=== PATIENT | male | born 1930 | race Caucasian/White ===

== ENCOUNTER 2017-01-16 00:53 | Inpatient (IN) | payer MEDICARE, BC ==
[2017-01-16] MEDS ORDERED: SODIUM CHLORIDE 0.9% 1,000 ML IV STA (01:10)
--- NOTE | 2017-01-16 01:11 | ED ---
General Adult HPI - General Stated complaint: syncope Time Seen by Provider: 01/16/17 01:06 Source: RN notes reviewed, old records reviewed - History of Present Illness Initial comments: This is an 86-year-old no the ER in severe distress this. We'll have. Patient is diaphoretic and feels weak, states he feels not well. Denies chest pain deny shortness of breath. Patient denies any recent change in medications, doesn't have any recent travel history or sick contacts or cough or congestion. No headache again no chest pain or shortness of breath and no abdominal pain. Patient has syncopal episode tonight. - Related Data Previous Rx's Medication Instructions Recorded Ciprofloxacin HCl [Cipro] 500 mg PO Q12HR #20 tablet 08/25/14 Phenazopyridine [Pyridium] 200 mg PO TID PRN #6 tablet 08/25/14 Allergies Allergy/AdvReac Type Severity Reaction Status Date / Time No Known Allergies Allergy Verified 01/16/17 01:22 Review of Systems ROS Statement: Those systems with pertinent positive or pertinent negative responses have been documented in the HPI. ROS Other: All systems not noted in ROS Statement are negative. Past Medical History Past Medical History: Diabetes Mellitus, Hypertension Additional Past Medical History / Comment(s): Arthritis History of Any Multi-Drug Resistant Organisms: None Reported Past Surgical History: Back Surgery, Orthopedic Surgery Additional Past Surgical History / Comment(s): shoulder operation Past Psychological History: No Psychological Hx Reported Smoking Status: Former smoker Past Alcohol Use History: None Reported Past Drug Use History: None Reported General Exam General appearance: alert, anxious, in distress Head exam: Present: atraumatic, normocephalic, normal inspection Eye exam: Present: normal appearance, PERRL, EOMI. Absent: scleral icterus, conjunctival injection, periorbital swelling ENT exam: Present: normal exam, mucous membranes moist Neck exam: Present: normal inspection. Absent: tenderness, meningismus, lymphadenopathy Respiratory exam: Present: normal lung sounds bilaterally. Absent: respiratory distress, wheezes, rales, rhonchi, stridor Cardiovascular Exam: Present: bradycardia, normal heart sounds. Absent: systolic murmur, diastolic murmur, rubs, gallop, clicks GI/Abdominal exam: Present: soft, normal bowel sounds. Absent: distended, tenderness, guarding, rebound, rigid Extremities exam: Present: normal inspection, full ROM, normal capillary refill. Absent: tenderness, pedal edema, joint swelling, calf tenderness Back exam: Present: normal inspection Neurological exam: Present: alert, oriented X3, CN II-XII intact Psychiatric exam: Present: normal affect, normal mood Skin exam: Present: warm, dry, intact, normal color. Absent: rash Course Vital Signs 01/16/17 01/16/17 01:05 01:30 Temperature 97.5 F L Pulse Rate 26 L 28 L Respiratory 18 16 Rate Blood Pressure 163/75 148/64 O2 Sat by Pulse 94 L Oximetry - Reevaluation(s) Reevaluation #1: 01/16/17 01:38 Patient found to be markedly bradycardic Reevaluation #2: 01/16/17 01:38 Cell with cardiology regarding bradycardia, will come in for permanent pacemaker placement secondary to third-degree block EKG Findings - EKG Comments: EKG Findings:: EKG shows sinus bradycardia rate 26, QRS 144, QTC 403 Medical Decision Making - Medical Decision Making 86 about a year with third-degree heart block and syncopal event. Patient be admitted for internal cardiac patient pacemaker placement Critical Care Time Critical Care Time: Yes Total Critical Care Time: 31 Disposition Clinical Impression: Syncope, Third degree heart block Disposition: ADMITTED IP TO THIS HOSP Condition: Critical Referrals: Finn Alva MD [Primary Care Provider] - 1-2 days
[2017-01-16] MEDS: ATROPINE SULFATE 0.1 MG/ML 10ML SYRINGE IV STA ×2 (01:24→01:29)
[2017-01-16 01:47] LABS: Basophils # (A) 0.1 k/uL (0-0.2); Basophils % (A) 1 %; CH 31.1; CHCM 33.2; Eosinophils # (A) 0.3 k/uL (0-0.7); Eosinophils % (A) 3 %; HCT 45.4 % (39.0-53.0); HDW 2.46; HGB 14.8 gm/dL (13.0-17.5); Luc # (Auto) 0.31; Luc % (Auto) 3; Lymphocytes # (A) 2.3 k/uL (1.0-4.8); Lymphocytes % (A) 21 %; MCH 30.6 pg (25.0-35.0); MCHC 32.6 g/dL (31.0-37.0); Monocytes # (A) 1.2 k/uL (0-1.0); Monocytes % (A) 11 %; Neutrophils # (A) 7.2 k/uL (1.3-7.7); Neutrophils % (A) 63 %; RBC 4.83 m/uL (4.30-5.90); RDW 12.7 % (11.5-15.5); WBC 11.4 k/uL (3.8-10.6); WBC (Perox) 10.49
[2017-01-16 02:00] LABS: ALT 35 U/L (21-72); AST 22 U/L (17-59); Alkaline Phosphatase 105 U/L (38-126); Anion Gap 15 mmol/L; Blood Urea Nitrogen 29 mg/dL (9-20); Calcium 9.9 mg/dL (8.4-10.2); Carbon Dioxide 17 mmol/L (22-30); Chloride 108 mmol/L (98-107); Glucose 263 mg/dL (74-99); Magnesium 1.8 mg/dL (1.6-2.3); Non-African American GFR(MDRD) >60 (>60 ml/min/1.73 sqM); Phosphorous 3.6 mg/dL (2.5-4.5); Potassium 4.7 mmol/L (3.5-5.1); Sodium 140 mmol/L (137-145); Total Bilirubin 0.5 mg/dL (0.2-1.3); Total Protein 7.3 g/dL (6.3-8.2)
[2017-01-16 02:03] LABS: INR 1.1 (<1.1); Prothrombin Time 11.4 sec (9.0-12.0)
[2017-01-16] MEDS ORDERED: LIDOCAINE 2% INJ 20 MG/ML (20 ML MDV) ONE (02:10)
[2017-01-16] MEDS ORDERED: NITROGLYCERIN SL TABS 0.4 MG TAB SUBLINGUAL PRN (02:15)
[2017-01-16 02:25] LABS: Troponin I 0.018 ng/mL (0.000-0.034)
[2017-01-16] MEDS ORDERED: SODIUM CHLORIDE 0.9% 500 ML IV ONE ×3 (02:30→10:30)
[2017-01-16] MEDS ORDERED: SODIUM CHLORIDE 0.9% 1,000 ML IV ONE (02:32)
[2017-01-16] MEDS ORDERED: LIDOCAINE 2% INJ 20 MG/ML SQ ONE ×3 (02:32→11:09)
[2017-01-16] MEDS ORDERED: amLODIPine 5 MG TAB ONE (02:45)
[2017-01-16] MEDS ORDERED: amLODIPine 5 MG TAB PO ONE (02:45)
[2017-01-16 02:49] LABS: Creatine Kinase MB 2.8 ng/mL (0.0-2.4)
--- NOTE | 2017-01-16 02:49 | XR ---
INDICATION: Weakness COMPARISON: None. FINDINGS: Single frontal view of the chest is provided. There is cardiomegaly. Pulmonary vascularity appears normal. Probable bibasilar and dependent subsegmental atelectasis. No significant pleural effusion. No pneumothorax. There is no evidence of acute osseous abnormality. There has been prior ACDF in the lower cervical spine. IMPRESSION: Cardiomegaly and subsegmental atelectasis.
--- NOTE | 2017-01-16 03:23 | P.CON ---
Consult Note - . Consult date: 01/16/17 Assessment/Plan:: This is a 86-year-old gentleman with a known history of hypertension and type 2 diabetes mellitus who he is under the care of Dr. Finn Paul in the outpatient setting. For the last 3-4 months he's been experiencing episodes of dizziness and lightheadedness and near syncope without actual passing out. However today he had at least 2 spells when he almost passed out but he did not hurt himself and he called his son and daughter. Daughter was unavailable and his son uncertain the phone and lives 9 minutes of a and he drove him to the emergency room. Patient walked into the ER with a cane and then had a heart rate of 24 bpm felt dizzy lightheaded had at least [address] VC valle was called and he advised a temporary pacemaker and requested me to come in to perform the procedure. EKG revealed a complete heart block with a narrow QRS and sometimes wide QRS beats. Patient is a poor historian and indicates to me that he has both hypertension and type 2 diabetes and takes medications but unable to tell me which ones. His son also did not have knowledge of what medications he takes but indicated to me that he is in good health remarkably active for his age and has no ALLERGIES. Past medical history: Type 2 diabetes mellitus Benign hypertension Medications: He takes an oral pill for diabetes and 2 pills for hypertension details unavailable ALLERGIES: None On examination his blood pressure was 130/70 pulse rate was 26 bpm. HEENT was unremarkable fundus was not examined by me neck is supple there is JVD of 1 cm. No carotid bruit is audible. Heart exam revealed distant heart sounds and no significant murmurs but heart rate was low area and lungs were clear abdomen is soft nontender lower extremities revealed diminished pulses. Gross examination of central nervous system did not reveal any focal neurological deficits. Rhythm strips suggest complete heart block. Impression: #1 Complete heart block with syncope. #2 benign hypertension #3 hyped 2 diabetes mellitus on oral agents Recommendations: I am recommending a temporary pacemaker from the right femoral approach today and a permanent pacemaker tomorrow rationale risks benefits options were discussed in detail with the patient and his son and I proceeded to perform the procedure expeditiously. Will proceed with a permanent pacemaker tomorrow. I will obtain echocardiogram. There is a mild troponin elevation could be related to bradycardia-related hypoxia and troponin rise get echocardiogram in the morning and tried to get a list of his medications from his pharmacy
--- NOTE | 2017-01-16 03:28 | P.PCN ---
Date of Procedure: 01/16/17 Preoperative Diagnosis: Complete heart block Postoperative Diagnosis: Complete heart block Procedure(s) Performed: Transvenous temporary pacemaker from the right femoral approach Implants: Indications for Procedure: Operative Findings: Description of Procedure: This patient presented to the hospital with a multiple episodes of near syncope had a heart rate of about 26 bpm was in complete heart block hemodynamically stable. I advised a temporary pacemaker today and a permanent pacemaker tomorrow and proceeded to perform the procedure expeditiously. Risks benefits options and rationale were explained to the patient and his son. Under strict aseptic precautions and local anesthesia S a 6-Yakut introducer was placed in the right femoral vein. Under fluoroscopic guidance a 5-Yakut balloon tipped pacemaker was advanced and positioned in the right ventricular apex. Excellent threshold were obtained. The threshold was less than 0.4 mV. The pacemaker was set at a backup rate of 40 and a MA of 3.0mV the pacemaker was secured and the lead was secured. Patient was in a paced rhythm at 40. Patient tolerated the procedure well without complications. The details were discussed with the patient as well as his son. He will go to the ICU will be observed very closely and I will perform a permanent pacemaker tomorrow.
[2017-01-16 03:40] LABS: Glucose,Whole Blood 247 mg/dL (75-99)
[2017-01-16 03:55] VITALS: BMI 38.5
[2017-01-16] MEDS: SODIUM CHLORIDE 0.9% 1,000 ML IV SCH ×2 (04:00→13:31)
[2017-01-16] MEDS: ZOLPIDEM 5 MG TAB PO PRN (05:04)
[2017-01-16] MEDS: amLODIPine 5 MG TAB PO SCH (08:17)
[2017-01-16] MEDS ORDERED: HYDROCORTISONE SUCCINATE 100 MG/2 ML VIAL IV STA (08:33)
[2017-01-16 08:37] LABS: Appearance,Urine Clear (Clear); Bilirubin,Urine Negative (Negative); Glucose,Urine (UA) 3+ (Negative); Ketones,Urine 1+ (Negative); Leukocyte Esterase,Urine Negative (Negative); Nitrite,Urine Negative (Negative); PH, Urine 5.5 (5.0-8.0); Protein,Urine Trace (Negative); Specific Gravity,Urine 1.019 (1.001-1.035); UA Billing (MACRO vs. MICRO) CHEM; Urobilinogen,Urine <2.0 mg/dL (<2.0)
[2017-01-16 09:02] LABS: Creatine Kinase MB 2.5 ng/mL (0.0-2.4); Troponin I 0.092 ng/mL (0.000-0.034)
[2017-01-16] MEDS ORDERED: ceFAZolin 1,000 MG in SODIUM CHLORIDE 0.9% IRRIGATIO 250 ML IRRIGATION ONE (10:00)
[2017-01-16] MEDS ORDERED: IODIXANOL 270 MG/ML 50 ML ML IV ONE (10:20)
[2017-01-16] MEDS ORDERED: MIDAZOLAM 2 MG/2 ML VIAL ONE (10:32)
[2017-01-16] MEDS: ceFAZolin 2 GM in SODIUM CHLORIDE 0.9% 100 ML IVPB ONE ×2 (10:33→10:50)
[2017-01-16] MEDS ORDERED: MIDAZOLAM 2 MG/2 ML VIAL IVP ONE (10:38)
[2017-01-16] MEDS ORDERED: HYDROmorphone 2 MG/ML 1 ML SYRINGE ONE (10:42)
[2017-01-16] MEDS: HYDROmorphone 2 MG/ML 1 ML SYRINGE IVP ONE ×2 (10:43→12:23)
--- NOTE | 2017-01-16 12:53 | ECHOF ---
Referral Reason:bradycardia, Eval LV FX, Complete Heart Block. MEASUREMENTS -------- HEIGHT: 167.6 cm WEIGHT: 104.3 kg BP: 139/57 IVSd: 1.3 cm (0.6 - 1.1) LVIDd: 4.1 cm (3.9 - 5.3) LVPWd: 1.2 cm (0.6 - 1.1) IVSs: 1.9 cm LVIDs: 2.2 cm LVPWs: 1.9 cm Ao Diam: 3.0 cm (2.0 - 3.7) AV Cusp: 1.4 cm (1.5 - 2.6) LA Diam: 4.4 cm (2.7 - 3.8) MV EXCURSION: 7.744 mm (> 18.000) MV EF SLOPE: 38 mm/s (70 - 150) EPSS: 1.4 cm MV E Sherman: 1.09 m/s MV DecT: 274 ms MV A Sherman: 1.07 m/s MV E/A Ratio: 1.02 AV maxP.55 mmHg AV meanP.03 mmHg RAP: 5.00 mmHg RVSP: 9.27 mmHg FINDINGS -------- Paced rhythm. This was a technically difficult study with suboptimal views. There is mild concentric left ventricular hypertrophy. Overall left ventricular systolic function is low-normal with, an EF between 50 - 55 %. The right ventricle is normal in size and function. The left atrium is mildly dilated. The right atrium is normal in size. 1.5mg of Definity was utilized for enhancement of images Aortic valve is trileaflet and is mildly thickened. There is mild aortic stenosis present. Peak/mean gradient across the Aortic Valve is 15.55mmHg / 8.03mmHg. The mitral valve leaflets are mildly thickened. Mild mitral regurgitation is present. Mild tricuspid regurgitation present. The right ventricular systolic pressure, as measured by Doppler, is 9.27mmHg. Pulmonic valve appears structurally normal. The aortic root size is normal. The pericardium is normal. CONCLUSIONS -------- 1. Paced rhythm. 2. There is mild aortic stenosis present. 3. Peak/mean gradient across the Aortic Valve is 15.55mmHg / 8.03mmHg. 4. The mitral valve leaflets are mildly thickened. 5. Mild mitral regurgitation is present. 6. Mild tricuspid regurgitation present. 7. The right ventricular systolic pressure, as measured by Doppler, is 9.27mmHg. 8. Pulmonic valve appears structurally normal. 9. The aortic root size is normal. 10. The pericardium is normal. 11. This was a technically difficult study with suboptimal views. 12. There is mild concentric left ventricular hypertrophy. 13. Overall left ventricular systolic function is low-normal with, an EF between 50 - 55 %. 14. The right ventricle is normal in size and function. 15. The left atrium is mildly dilated. 16. The right atrium is normal in size. 17. 1.5mg of Definity was utilized for enhancement of images 18. Aortic valve is trileaflet and is mildly thickened. CUFF SETTER: Monica Skinner RDCS
[2017-01-16] MEDS ORDERED: ACETAMINOPHEN TAB 325 MG TAB PO PRN (13:33)
--- NOTE | 2017-01-16 14:01 | P.PCN ---
Date of Procedure: 01/16/17 Preoperative Diagnosis: Complete heart block status post temporary pacemaker placement Postoperative Diagnosis: Complete heart block status post dual-chamber permanent pacemaker placement and removal of temporary pacer Procedure(s) Performed: Implants: Anesthesia: other (Moderate conscious sedation was provided with Versed and Dilaudid and patient monitored very closely for 2 hours and oxygenation was good ) Indications for Procedure: Operative Findings: Description of Procedure: #1 permanent dual-chamber pacemaker placement from left pectoral approach, performed by Dr. YOLY Tobar #2 removal of right femoral transvenous pacemaker and the 6-Indian sheath This patient presented last night with a complete heart block and multiple episodes of near syncope. His heart rate was about 26 bpm and I performed a temporary transvenous pacemaker from the right femoral approach. Patient tolerated the procedure well and I kept the backup rate at 40 bpm and his underlying rhythm remained about 26 this morning he was advised permanent pacemaker. All the risks and benefits options were explained carefully to the patient and family. Under strict aseptic precautions and local anesthesia, 2 separate access points were obtained into the left axillary vein after performing a venogram For guidance. Access was obtained under fluoroscopic guidance. obtained the initial access point and I obtained a second access point. A surgical pocket was made using blunt dissection and cautery. There was some oozing around the wires. Cautery was used to secure good hemostasis. Under fluoroscopic guidance a ventricular lead was positioned in the right ventricular apex. After considerable manipulation good thresholds were obtained. R waves are obtained used with the temporary paced R waves. Subsequently this lead was secured with a 0 silk suture. I then advanced a 6- Indian sheath underfluoroscopic guidance and through this sheath advanced a atrial lead and positioned this in the right atrial appendage and good thresholds and P waves were obtained. Lead was also secured to the underlying muscle with a 0 silk suture. Both the leads were then attached to the pulse generator and the pulse generator was secured to the underlying muscle in the line of the incision. The wound was closed in 2 layers. Excellent hemostasis was achieved. I used D-Stat a cause of some oozing. The patient tolerated the procedure well without complications. The findings and the details were discussed with the patient and family members. I expect he will be discharged in the next 24-36 hours. He was sent back to the ICU in a stable condition with excellent hemostasis. The temporary transvenous pacemaker was taken out underfluoroscopic guidance and the venous sheath in the right femoral vein was pulled and hemostasis secured Pacemaker information: Pulse generator audio narrator [employer] scientific model essentio DR IS-1 model L101 serial #[id number] location left pectoral subcutaneous. Right atrial lead audio narrator [employer] scientific model INGEVITY MRI IS-1 bipolar active fixation 52 cm lead bipolar model 7741 serial #[id number] location right atrial appendage Right ventricular lead audio narrator [employer] scientific model INGEVITY MRI IS-1 bipolar active fixation right ventricular lead 59 cm model 7742 serial #[id number] location right ventricular apex Right atrial lead measurements threshold 0.3 V at 0.5 ms, impedance 588 ohms, P waves are 3.0 mV. Right ventricular lead threshold 0.6 V at 0.5 ms impedance 1195 ohms, R waves which were actually paced R waves of 25.0 mV. Pacemaker settings mode DDD, lower rate 50, high-rate 110, paced AV delay 100- 200 ms sensed AV delay 85-170 ms. Patient tolerated the procedure well without complications. He will have a portable chest x-ray today and it two-view chest x-ray tomorrow along with a device check prior to discharge. Discussed with patient and family.
--- NOTE | 2017-01-16 14:38 | XR ---
EXAMINATION TYPE: XR chest 1V portable DATE OF EXAM: 01/16/2017 COMPARISON: NONE INDICATION: Lead placement check TECHNIQUE: Single frontal view of the chest is obtained. FINDINGS: The heart size is normal. The pulmonary vasculature is normal. The lungs are clear. Pacemaker overlies left chest. 2 leads are in typical orientation. No pneumothorax is evident. IMPRESSION: 1. No acute pulmonary process. 2. Pacemaker leads appear to have normal orientation. No pneumothorax is evident post placement
[2017-01-16 16:12] LABS: Creatine Kinase MB 3.3 ng/mL (0.0-2.4); Troponin I 0.686 ng/mL (0.000-0.034)
[2017-01-16] MEDS: ceFAZolin 2 GM in SODIUM CHLORIDE 0.9% 100 ML IVPB SCH ×2 (17:05→21:22)
[2017-01-16 20:52] LABS: Glucose,Whole Blood 181 mg/dL (75-99)
[2017-01-16] MEDS: HEPARIN SODIUM,PORCINE 5,000 UNIT/ML 1 ML VIAL SQ SCH (21:22)
[2017-01-17] MEDS: ZOLPIDEM 5 MG TAB PO PRN ×2 (02:22→22:15)
[2017-01-17] MEDS ORDERED: amLODIPine 5 MG TAB PO STA (02:56)
[2017-01-17] MEDS ORDERED: NITROGLYCERIN SL TABS 0.4 MG TAB SUBLINGUAL STA (02:56)
[2017-01-17] MEDS: ceFAZolin 2 GM in SODIUM CHLORIDE 0.9% 100 ML IVPB SCH ×2 (04:12→09:43)
[2017-01-17 06:22] LABS: Glucose,Whole Blood 191 mg/dL (75-99)
[2017-01-17 07:11] LABS: Basophils % (A) 0 %; CH 30.9; Eosinophils # (A) 0.2 k/uL (0-0.7); Eosinophils % (A) 2 %; HCT 44.7 % (39.0-53.0); HDW 2.51; Luc % (Auto) 2; Lymphocytes % (A) 8 %; MCH 30.5 pg (25.0-35.0); MCHC 33.4 g/dL (31.0-37.0); MCV 91.3 fL (80.0-100.0); Mean Platelet Volume 9.3; Monocytes # (A) 1.1 k/uL (0-1.0); Monocytes % (A) 9 %; Neutrophils % (A) 80 %; RDW 12.8 % (11.5-15.5); WBC 12.5 k/uL (3.8-10.6); WBC (Perox) 11.94
[2017-01-17 07:17] LABS: Cholesterol 146 mg/dL (<200); HDL Cholesterol 55 mg/dL (40-60); Triglycerides 123 mg/dL (<150)
--- NOTE | 2017-01-17 07:53 | XR ---
EXAMINATION TYPE: XR chest 2V DATE OF EXAM: 01/17/2017 COMPARISON: 01/16/2017 INDICATION: Lead placement check TECHNIQUE: Frontal and lateral views of the chest are obtained. FINDINGS: The heart size is normal. The pulmonary vasculature is normal. The lungs are clear. No pneumothorax is evident. Pacemaker overlies left chest. IMPRESSION: 1. No acute pulmonary process.
[2017-01-17] MEDS ORDERED: ASPIRIN 325 MG TAB PO SCH (09:00)
[2017-01-17] MEDS: amLODIPine 5 MG TAB PO SCH (09:43)
[2017-01-17] MEDS: LOSARTAN-HCTZ 50-12.5 MG 1 EACH TAB PO SCH (09:43)
[2017-01-17] MEDS: ATORVASTATIN 40 MG TAB PO SCH (09:43)
[2017-01-17] MEDS: ASPIRIN 81 MG CHEW PO SCH (09:43)
[2017-01-17] MEDS: HEPARIN SODIUM,PORCINE 5,000 UNIT/ML 1 ML VIAL SQ SCH ×2 (09:44→20:39)
[2017-01-17 11:37] LABS: Glucose,Whole Blood 213 mg/dL (75-99)
[2017-01-17] MEDS: INSULIN LISPRO (humaLOG) 300 UNIT/3 ML VIAL SQ SCH ×3 (12:23→20:48)
[2017-01-17 16:52] LABS: Glucose,Whole Blood 274 mg/dL (75-99)
[2017-01-17 20:36] LABS: Hemoglobin A1C 8.1 % (4.2-6.1)
[2017-01-17] MEDS: METOPROLOL TARTRATE 25 MG TAB PO SCH (20:40)
[2017-01-17 21:01] LABS: Glucose,Whole Blood 223 mg/dL (75-99)
[2017-01-18 05:51] LABS: Glucose,Whole Blood 159 mg/dL (75-99)
[2017-01-18] MEDS: INSULIN LISPRO (humaLOG) 300 UNIT/3 ML VIAL SQ SCH ×4 (06:23→21:18)
[2017-01-18] MEDS ORDERED: DOCUSATE 100 MG CAP PO PRN (08:56)
--- NOTE | 2017-01-18 09:01 | P.PN ---
Progress Note - Text This is Dr. Cunningham dictating a progress note on Mr. Nicko Munoz for January 17 and this patient was admitted to the hospital with episodes of near-syncope and lightheadedness. Patient was admitted to the hospital with complete A-V block. Patient had a permanent pacemaker implantation done yesterday by Dr. YOLY Tobar. Patient's chest x-ray showed stable position of the leads and thresholds were intact. The atrial threshold however, could not be measured as patient went into atrial flutter while being examined. The rate is controlled. Patient is going to be started on metoprolol. We'll going to see. Patient will be candidate for new anticoagulant agent. If so patient will be started on Eliquis 5 mg by mouth twice a day starting tomorrow and if stable patient be discharged home tomorrow. Physical examination reveals elderly gentleman who is alert and oriented and doesn't appear to be in acute distress. Vital signs are stable. Lungs are clear. Heart is regular. The pacemaker site. She seemed to be intact without any significant hematoma. Final impression: #1. Complete AV block #2. Status post permanent pacemaker implantation #3. Benign hypertension #4. New-onset atrial flutter. Plan: Add beta marcelo. Will see patient will be candidate for new anticoagulant agent. Possible discharge in 24 hours.
[2017-01-18] MEDS: ASPIRIN 81 MG CHEW PO SCH (09:02)
[2017-01-18] MEDS: amLODIPine 5 MG TAB PO SCH (09:02)
[2017-01-18] MEDS: ATORVASTATIN 40 MG TAB PO SCH (09:03)
[2017-01-18] MEDS: HEPARIN SODIUM,PORCINE 5,000 UNIT/ML 1 ML VIAL SQ SCH ×2 (09:03→21:19)
[2017-01-18] MEDS: LOSARTAN-HCTZ 50-12.5 MG 1 EACH TAB PO SCH (09:03)
[2017-01-18] MEDS: METOPROLOL TARTRATE 25 MG TAB PO SCH ×2 (09:04→21:19)
[2017-01-18 11:46] LABS: Glucose,Whole Blood 165 mg/dL (75-99)
--- NOTE | 2017-01-18 13:26 | P.PN ---
Subjective Principal diagnosis: Syncope This is an 86-year-old gentleman who presented to the hospital with episodes of near syncope and lightheadedness. He was in complete heart block and underwent permanent pacemaker implantation. By the device is being interrogated it was found that the patient had episodes of atrial flutter and for this reason was initiated on anticoagulation. He was seen and examined this morning sitting up in the chair, no complaints. Objective - Vital Signs Vital signs: Vital Signs Temp 97.2 F L 01/18/17 08:00 Pulse 57 L 01/18/17 12:00 Resp 18 01/18/17 12:00 BP 141/68 01/18/17 12:00 Pulse Ox 96 01/18/17 12:00 Intake & Output 01/17/17 01/18/17 01/18/17 18:59 06:59 18:59 Intake Total 120 720 180 Output Total 200 1800 Balance -80 -1080 180 Weight 101.1 kg Intake: Oral 120 720 180 Output: Urine 200 1800 Other: Voiding Method Indwelling Catheter # Voids 1 1 - Exam PHYSICAL EXAMINATION: HEENT: Head is atraumatic, normocephalic. Pupils equal, round. Neck is supple. There is no elevated jugular venous pressure. HEART EXAMINATION: Heart S1, S2 normal. No murmur or gallop heard. CHEST EXAMINATION: Lungs are clear to auscultation and precussion. No chest wall tenderness is noted on palpation or with deep breathing. Site of pacemaker implantation, dressing is dry and intact. ABDOMEN: Soft, nontender. Bowel sounds are heard. No organomegaly noted. EXTREMITIES: 2+ peripheral pulses with no evidence of peripheral edema and no calf tenderness noted. NEUROLOGIC patient is awake, alert and oriented -3. . - Labs CBC & Chem 7: 01/17/17 06:01/16/17 01:24 Labs: Abnormal Lab Results - Last 24 Hours (Table) 01/17/17 01/17/17 01/17/17 Range/Units 06:17 16:48 20:46 POC Glucose (mg/dL) 274 H 223 H (75-99) mg/dL Hemoglobin A1c 8.1 H (4.2-6.1) % 01/18/17 01/18/17 Range/Units 05:49 11:44 POC Glucose (mg/dL) 159 H 165 H (75-99) mg/dL Hemoglobin A1c (4.2-6.1) % Microbiology - Last 24 Hours (Table) 01/16/17 08:00 Urine Culture - Final Urine,Voided Assessment and Plan (1) Pacemaker Status: Acute (2) Atrial flutter Status: Acute (3) Syncope Status: Acute (4) Third degree heart block Status: Acute Plan: From cardiology's perspective, patient may be able to be discharged home today. He'll make him a follow-up appointment in the office and with the device clinic in one week. He has also been initiated on Eliquis 2 mg one tablet by mouth twice a day. Continues to be in normal sinus rhythm today. DNP note has been reviewed, I agree with a documented findings and plan of care. Patient was seen and examined.
[2017-01-18 16:54] LABS: Glucose,Whole Blood 153 mg/dL (75-99)
[2017-01-18] MEDS: metFORMIN 500 MG TAB PO SCH (16:59)
--- NOTE | 2017-01-18 17:30 | P.PN ---
Progress Note - Text Date of service: January/2017 Presenting complaint: Urinary retention X Interval history: Patient admitted with complete AV block and got pacemaker. Patient also been in atrial flutter currently in sinus rhythm. Cardiology is looking into starting the patient eliquis . Earlier today patient had a large urinary retention of about 900 mL and a Ashley catheter was placed. Patient been having progressive urine symptoms over last 3-4 years with decreased urine output and a slow stream. Patient's family at the bedside. Otherwise patient feels well. Patient has not been taking his Glucophage at home, now because her sugars are running on the high side is agreed to start on his Glucophage Review of systems: Was done for constitutional, cardiovascular, GI, pulmonary. Genitourinary, relevant finding as above Current medications are reviewed VITAL SIGNS: [97.2, 68, 16, 124/60, 95% room air] GENERAL APPEARANCE: Well-built. Lying in bed, comfortable EYES: Pupils equal. Conjunctiva normal. NECK: JVD not raised. Mass not palpable. RESPIRATORY: Respiratory effort normal. Lungs clear to auscultation. CARDIOVASCULAR: First and second sounds normal. No edema. ABDOMEN: Soft. Liver and spleen not palpable. No tenderness. No mass palpable. PSYCHIATRY: Alert and oriented x3. Mood and affect normal. Extremities: Left arm in a sling Labs: None from today Assessment: -Complete AV block leading to a permanent pacemaker placement -Paroxysmal atrial flutter currently in sinus rhythm -Essential hypertension -Acute urine retention secondary to a BPH -obesity BMI 36.0 -Diabetes mellitus type 2, uncontrolled, patient not been taking his Glucophage Plan: Ashley catheter was placed. He should be started on Flomax. Will be given a trial of DC Ashley tomorrow and is still retains will be discharged with a Ashley catheter. Also patient started on Glucophage. Eliquis is being looked into by cardiology. Care was discussed with the patient's and family by the bedside. Check labs in the morning.
[2017-01-18 20:52] LABS: Glucose,Whole Blood 168 mg/dL (75-99)
[2017-01-18] MEDS ORDERED: TAMSULOSIN 0.4 MG CAP.ER.24H PO SCH (21:00)
[2017-01-18] MEDS: ZOLPIDEM 5 MG TAB PO PRN (22:40)
[2017-01-19 06:11] LABS: Glucose,Whole Blood 140 mg/dL (75-99)
[2017-01-19] MEDS: INSULIN LISPRO (humaLOG) 300 UNIT/3 ML VIAL SQ SCH ×2 (06:11→12:23)
[2017-01-19] MEDS: metFORMIN 500 MG TAB PO SCH (06:11)
[2017-01-19] MEDS: METOPROLOL TARTRATE 25 MG TAB PO SCH (07:57)
[2017-01-19] MEDS: amLODIPine 5 MG TAB PO SCH (07:58)
[2017-01-19] MEDS: ATORVASTATIN 40 MG TAB PO SCH (07:58)
[2017-01-19] MEDS: ASPIRIN 81 MG CHEW PO SCH (07:58)
[2017-01-19] MEDS: HEPARIN SODIUM,PORCINE 5,000 UNIT/ML 1 ML VIAL SQ SCH (07:59)
[2017-01-19] MEDS ORDERED: LISINOPRIL 5 MG TAB PO SCH (09:00)
[2017-01-19 09:08] VITALS: TEMP 97.8
[2017-01-19 11:26] VITALS: BP 98/54; PULSE 70; RESP 18
[2017-01-19 11:35] LABS: Glucose,Whole Blood 256 mg/dL (75-99)
[2017-01-19] MEDS: LOSARTAN-HCTZ 50-12.5 MG 1 EACH TAB PO SCH (12:21)
[2017-01-19] MEDS ORDERED: APIXABAN 2.5 MG TABLET PO SCH (13:15)
--- NOTE | 2017-01-19 16:56 | P.DS ---
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 Found to be in complete AV block and also episodes of atrial flutter. Patient got a permanent pacemaker. Patient been also having trouble making urine for some time and landed up having acute urinary retention of about 900 mL. Patient is put on Flomax. Ashley catheter had to be placed and today patient did get the trial of DC Ashley but did not make urine hands patient Ashley is being put back in. To follow-up with urology as an outpatient. Care was discussed in detail with the patient and son at the bedside. Left arm in a sling. Discharge planning more than 35 minutes Procedure: Permanent pacemaker placed by Dr. Bobby Plan - Discharge Summary New Discharge Prescriptions: New amLODIPine [Norvasc] 5 mg PO DAILY #60 tab Atorvastatin [Lipitor] 40 mg PO DAILY #60 tab Losartan-Hctz 50-12.5 mg [Hyzaar 50-12.5] 2 each PO DAILY #60 tab Apixaban [Eliquis] 2.5 mg PO BID tab Metoprolol Tartrate [Lopressor] 25 mg PO BID #60 tab Tamsulosin [Flomax] 0.4 mg PO HS #30 cap Continue Aspirin 81 mg PO DAILY Cholecalciferol [Vitamin D3] 2,000 unit PO DAILY metFORMIN HCL [Glucophage] 500 mg PO AC-TID Discontinued Carvedilol [Coreg] 6.25 mg PO BID Simvastatin [Simvastatin] 40 mg PO HS Discharge Medication List Aspirin 81 mg PO DAILY 01/16/17 [History] Cholecalciferol [Vitamin D3] 2,000 unit PO DAILY 01/16/17 [History] Atorvastatin [Lipitor] 40 mg PO DAILY #60 tab 01/17/17 [Rx] Losartan-Hctz 50-12.5 mg [Hyzaar 50-12.5] 2 each PO DAILY #60 tab 01/17/17 [Rx] amLODIPine [Norvasc] 5 mg PO DAILY #60 tab 01/17/17 [Rx] metFORMIN HCL [Glucophage] 500 mg PO AC-TID 01/17/17 [History] Apixaban [Eliquis] 2.5 mg PO BID tab 01/19/17 [Rx] Metoprolol Tartrate [Lopressor] 25 mg PO BID #60 tab 01/19/17 [Rx] Tamsulosin [Flomax] 0.4 mg PO HS #30 cap 01/19/17 [Rx] Follow up Appointment(s)/Referral(s): Dary Tobar MD [STAFF PHYSICIAN] - 01/25/17 3:30 pm Finn Alva MD [Primary Care Provider] - 3 Days (Please make appointment when ofice is open) [facility] Visiting Nurse, [NON-STAFF] - Benedict Lance MD [STAFF PHYSICIAN] - 2 Weeks Patient Instructions/Handouts: Pacemaker (DC), Ashley Catheter Placement and Care (DC), Meal Planning with Diabetes Exchanges (DC) Activity/Diet/Wound Care/Special Instructions: *Danie - warehouse order picker from [facility] at time of discharge*
--- NOTE | 2017-01-19 18:03 | P.PN ---
Subjective Principal diagnosis: Complete heart block This is a 86-year-old gentleman who was admitted with complete heart block. Had temporary followed with permanent pacemaker implantation. Patient also developed atrial flutter. Patient is doing well. He has problems with urination and had a Ashley catheter. Seems to be stable today. Patient is being discharged home. Patient is going on eliquis 2.5 mg by mouth twice daily. Rest of the medication to be continued. Follow-up with YOLY Tobar in one week Objective - Vital Signs Vital signs: Vital Signs Temp 97.8 F 01/19/17 08:00 Pulse 70 01/19/17 11:25 Resp 18 01/19/17 11:25 BP 98/54 01/19/17 11:25 Pulse Ox 94 L 01/19/17 11:25 Intake & Output 01/18/17 01/19/17 01/19/17 18:59 06:59 18:59 Intake Total 480 360 460 Output Total 1125 1900 Balance -645 -1540 460 Weight 98.2 kg Intake: Oral 480 360 460 Output: Urine 1125 1900 Coude 1100 Other: Voiding Method Indwelling Catheter Indwelling Catheter Toilet # Voids 1 - Exam GENERAL EXAM: Patient is alert and oriented and doesn't appear to be in any acute distress HEENT: Normocephalic. Normal reaction of pupils, equal size, normal range of extraocular motion. No erythema or exudates in the throat. NECK: No masses, no nuchal rigidity. CHEST: No chest wall deformity. LUNGS: Equal air entry with no crackles or wheeze. HEART: S1 and S2 normal with no audible mumurs or gallops. Regular rhythm, femorals equal on both sides.. ABDOMEN: No hepatosplenomegaly, normal bowel sounds, no guarding or rigidity. SKIN: No rashes CENTRAL NERVOUS SYSTEM: No focal deficits. EXTREMITIES: No cyanosis, clubbing or edema. - Labs CBC & Chem 7: 01/17/17 06:17 01/16/17 01:24 Labs: Abnormal Lab Results - Last 24 Hours (Table) 01/18/17 01/19/17 01/19/17 Range/Units 20:48 06:09 11:31 POC Glucose (mg/dL) 168 H 140 H 256 H (75-99) mg/dL Assessment and Plan (1) Atrial flutter Status: Acute (2) Pacemaker Status: Acute (3) Syncope Status: Acute (4) Third degree heart block Status: Acute Plan: Patient is critically stable. Being discharged home.
== END 2017-01-19 19:39 | disposition home or self-care (01) | DRG 244 ==
LOC: EC 00:53 → 6ICU 02:11 → 6SEL 20:11
PROVIDERS: ADMIT Hospitalist; ATTEND Hospitalist
PROC: 02H63JZ Insertion of Pacemaker Lead into Right Atrium, Percutaneous Approach (ICD-10-PCS; 2017-01-16)
PROC: 02HK3JZ Insertion of Pacemaker Lead into Right Ventricle, Percutaneous Approach (ICD-10-PCS; 2017-01-16)
PROC: 5A1223Z Performance of Cardiac Pacing, Continuous (ICD-10-PCS; 2017-01-16)
PROC: 0JH606Z Insertion of Pacemaker, Dual Chamber into Chest Subcutaneous Tissue and Fascia, Open Approach (ICD-10-PCS; principal; 2017-01-16 02:19)
DX: I44.2 Atrioventricular block, complete (principal); E11.65 Type 2 diabetes mellitus with hyperglycemia; E66.9 Obesity, unspecified; I10 Essential (primary) hypertension; I48.92 Unspecified atrial flutter; N40.1 Benign prostatic hyperplasia with lower urinary tract symptoms; R33.8 Other retention of urine; M19.90 Unspecified osteoarthritis, unspecified site; E78.5 Hyperlipidemia, unspecified; Z68.36 Body mass index [BMI] 36.0-36.9, adult; Z87.891 Personal history of nicotine dependence
CPT/HCPCS: 33208; 33210; 36415; 71010; 71020; 80053; 80061; 81003; 82550; 82553; 83036; 83735; 84100; 84484; 85025; 85379; 85610; 85730; 87086; 93005; 93306; 96361; 96374; 99291

== ENCOUNTER 2017-03-01 19:07 | Inpatient (IN) | payer MEDICARE, BC ==
[2017-03-01] MEDS ORDERED: ACETAMINOPHEN TAB 500 MG TAB PO STA (20:31)
[2017-03-01] MEDS ORDERED: IBUPROFEN 600 MG TAB PO STA (20:31)
--- NOTE | 2017-03-01 20:34 | ED ---
General Adult HPI - General Chief complaint: Fever Stated complaint: catheter issues Time Seen by Provider: 03/01/17 19:10 Source: patient, RN notes reviewed Mode of arrival: wheelchair Limitations: no limitations - History of Present Illness Initial comments: This is 86-year-old male who presents emergency Department complaining that he has a fever it was taken at home although 102. Patient states he's had the chills as well along with the fever. Patient states he had a Ashley catheter placed a month ago and he wonders if that is the source of fever. Patient denies any chest pain palpitations difficulty breathing shortness of breath. Patient denies any cough. Patient denies any abdominal pain patient denies any nausea vomiting diarrhea. Patient denies any back pain. Patient denies any lesions rashes or areas of erythema consistent with cellulitis. Patient denies any recent injury or trauma. Patient denies any patient denies numbness weakness. Patient denies any lightheadedness or dizziness - Related Data Home Medications Medication Instructions Recorded Confirmed Aspirin 81 mg PO DAILY 01/16/17 03/01/17 Cholecalciferol [Vitamin D3] 2,000 unit PO DAILY 01/16/17 03/01/17 metFORMIN HCL [Glucophage] 500 mg PO AC-TID 01/17/17 03/01/17 Losartan-Hctz 50-12.5 mg [Hyzaar 2 tab PO DAILY 03/01/17 03/01/17 50-12.5] Previous Rx's Medication Instructions Recorded Atorvastatin [Lipitor] 40 mg PO DAILY #60 tab 01/17/17 amLODIPine [Norvasc] 5 mg PO DAILY #60 tab 01/17/17 Apixaban [Eliquis] 2.5 mg PO BID tab 01/19/17 Metoprolol Tartrate [Lopressor] 25 mg PO BID #60 tab 01/19/17 Tamsulosin [Flomax] 0.4 mg PO HS #30 cap 01/19/17 Allergies Allergy/AdvReac Type Severity Reaction Status Date / Time No Known Allergies Allergy Verified 03/01/17 20:09 Review of Systems ROS Statement: Those systems with pertinent positive or pertinent negative responses have been documented in the HPI. ROS Other: All systems not noted in ROS Statement are negative. Past Medical History Past Medical History: Diabetes Mellitus, Hypertension, Syncope Additional Past Medical History / Comment(s): Arthritis History of Any Multi-Drug Resistant Organisms: None Reported Past Surgical History: Back Surgery, Orthopedic Surgery Additional Past Surgical History / Comment(s): shoulder operation, neck surgery Past Anesthesia/Blood Transfusion Reactions: Family Hisory of Malignant Hyperthermia Past Psychological History: No Psychological Hx Reported Smoking Status: Former smoker Past Alcohol Use History: None Reported Past Drug Use History: None Reported - Past Family History Daughter(s) Family Medical History: Rheumatoid Arthritis (RA) Additional Family Medical History / Comment(s): possuble malignant hyperthermia General Exam - General Exam Comments Initial Comments: GENERAL: Patient is well-developed and well-nourished. Patient is nontoxic and well- hydrated and is in mild distress. ENT: Neck is soft and supple. No significant lymphadenopathy is noted. Oropharynx is clear. Moist mucous membranes. Neck has full range of motion without eliciting any pain. EYES: The sclera were anicteric and conjunctiva were pink and moist. Extraocular movements were intact and pupils were equal round and reactive to light. Eyelids were unremarkable. PULMONARY: Unlabored respirations. Good breath sounds bilaterally. No audible rales rhonchi or wheezing was noted. CARDIOVASCULAR: There is a regular rate and rhythm without any murmurs gallops or rubs. ABDOMEN: Soft and nontender with normal bowel sounds. No palpable organomegaly was noted. There is no palpable pulsatile mass. SKIN: Skin is clear with no lesions or rashes and otherwise unremarkable. NEUROLOGIC: Patient is alert and oriented x3. Cranial nerves II through XII are grossly intact. Motor and sensory are also intact. Normal speech, volume and content. Symmetrical smile. MUSCULOSKELETAL: Normal extremities with adequate strength and full range of motion. No lower extremity swelling or edema. No calf tenderness. LYMPHATICS: No significant lymphadenopathy is noted PSYCHIATRIC: Normal psychiatric evaluation. Limitations: no limitations Course Vital Signs 03/01/17 03/01/17 19:08 20:39 Temperature 100.3 F H Pulse Rate 108 H Respiratory 20 20 Rate Blood Pressure 89/51 O2 Sat by Pulse 92 L Oximetry Medical Decision Making - Medical Decision Making EKG shows ventricular paced rhythm at [address] interval 164 QRS is 152 QTC is 444 QTC is 461. - Lab Data Result diagrams: 03/01/17 21:02 03/01/17 21:02 Lab Results 08/14/17 08/14/17 08/14/17 Range/Units 21:02 21:02 21:02 WBC 22.8 H (3.8-10.6) k/uL RBC 3.86 L (4.30-5.90) m/uL Hgb 12.2 L (13.0-17.5) gm/dL Hct 34.8 L (39.0-53.0) % MCV 90.2 (80.0-100.0) fL MCH 31.6 (25.0-35.0) pg MCHC 35.0 (31.0-37.0) g/dL RDW 12.2 (11.5-15.5) % Plt Count 166 (150-450) k/uL Neutrophils % 85 % Lymphocytes % 4 % Monocytes % 8 % Eosinophils % 1 % Basophils % 0 % Neutrophils # 19.5 H (1.3-7.7) k/uL Lymphocytes # 0.8 L (1.0-4.8) k/uL Monocytes # 1.9 H (0-1.0) k/uL Eosinophils # 0.2 (0-0.7) k/uL Basophils # 0.1 (0-0.2) k/uL PT (9.0-12.0) sec INR (<1.2) APTT (22.0-30.0) sec Sodium 132 L (137-145) mmol/L Potassium 4.4 (3.5-5.1) mmol/L Chloride 98 (98-107) mmol/L Carbon Dioxide 21 L (22-30) mmol/L Anion Gap 13 mmol/L BUN 32 H (9-20) mg/dL Creatinine 1.70 H (0.66-1.25) mg/dL Est GFR (MDRD) Af Amer 47 (>60 ml/min/1.73 sqM) Est GFR (MDRD) Non-Af 38 (>60 ml/min/1.73 sqM) Glucose 178 H (74-99) mg/dL Plasma Lactic Acid Ruel 1.7 (0.7-2.0) mmol/L Calcium 9.5 (8.4-10.2) mg/dL Total Bilirubin 1.2 (0.2-1.3) mg/dL AST 15 L (17-59) U/L ALT 27 (21-72) U/L Alkaline Phosphatase 69 (38-126) U/L Total Protein 6.2 L (6.3-8.2) g/dL Albumin 3.6 (3.5-5.0) g/dL Urine Color Urine Appearance (Clear) Urine pH (5.0-8.0) Ur Specific [place] (1.001-1.035) Urine Protein (Negative) Urine Glucose (UA) (Negative) Urine Ketones (Negative) Urine Blood (Negative) Urine Nitrite (Negative) Urine Bilirubin (Negative) Urine Urobilinogen (<2.0) mg/dL Ur Leukocyte Esterase (Negative) Urine RBC (0-5) /hpf Urine WBC (0-5) /hpf Urine Mucus (None) /hpf Urine Yeast (Budding) (None) /hpf 03/01/17 03/01/17 Range/Units 21:02 21:02 WBC (3.8-10.6) k/uL RBC (4.30-5.90) m/uL Hgb (13.0-17.5) gm/dL Hct (39.0-53.0) % MCV (80.0-100.0) fL MCH (25.0-35.0) pg MCHC (31.0-37.0) g/dL RDW (11.5-15.5) % Plt Count (150-450) k/uL Neutrophils % % Lymphocytes % % Monocytes % % Eosinophils % % Basophils % % Neutrophils # (1.3-7.7) k/uL Lymphocytes # (1.0-4.8) k/uL Monocytes # (0-1.0) k/uL Eosinophils # (0-0.7) k/uL Basophils # (0-0.2) k/uL PT 12.9 H (9.0-12.0) sec INR 1.3 H (<1.2) APTT 28.6 (22.0-30.0) sec Sodium (137-145) mmol/L Potassium (3.5-5.1) mmol/L Chloride (98-107) mmol/L Carbon Dioxide (22-30) mmol/L Anion Gap mmol/L BUN (9-20) mg/dL Creatinine (0.66-1.25) mg/dL Est GFR (MDRD) Af Amer (>60 ml/min/1.73 sqM) Est GFR (MDRD) Non-Af (>60 ml/min/1.73 sqM) Glucose (74-99) mg/dL Plasma Lactic Acid Ruel (0.7-2.0) mmol/L Calcium (8.4-10.2) mg/dL Total Bilirubin (0.2-1.3) mg/dL AST (17-59) U/L ALT (21-72) U/L Alkaline Phosphatase (38-126) U/L Total Protein (6.3-8.2) g/dL Albumin (3.5-5.0) g/dL Urine Color Yellow Urine Appearance Cloudy (Clear) Urine pH 5.5 (5.0-8.0) Ur Specific [place] 1.014 (1.001-1.035) Urine Protein Trace H (Negative) Urine Glucose (UA) Negative (Negative) Urine Ketones Negative (Negative) Urine Blood Small H (Negative) Urine Nitrite Negative (Negative) Urine Bilirubin Negative (Negative) Urine Urobilinogen <2.0 (<2.0) mg/dL Ur Leukocyte Esterase Large H (Negative) Urine RBC 17 H (0-5) /hpf Urine WBC >182 H (0-5) /hpf Urine Mucus Rare H (None) /hpf Urine Yeast (Budding) Few H (None) /hpf Disposition Clinical Impression: Urinary tract infection, Sepsis, Leukocytosis Disposition: ADMITTED IP TO THIS HOSP Referrals: Finn Alva MD [Primary Care Provider] - 1-2 days Time of Disposition: 21:51
[2017-03-01] MEDS: SODIUM CHLORIDE 0.9% 500 ML IV SCH ×2 (21:07→21:41)
[2017-03-01 21:18] LABS: Basophils # (A) 0.1 k/uL (0-0.2); Basophils % (A) 0 %; CH 30.5; CHCM 33.9; Eosinophils # (A) 0.2 k/uL (0-0.7); Eosinophils % (A) 1 %; HCT 34.8 % (39.0-53.0); HDW 2.39; HGB 12.2 gm/dL (13.0-17.5); Immature Gran Flag Slight; Luc # (Auto) 0.35; Luc % (Auto) 2; Lymphocytes # (A) 0.8 k/uL (1.0-4.8); Lymphocytes % (A) 4 %; MCH 31.6 pg (25.0-35.0); MCV 90.2 fL (80.0-100.0); Mean Platelet Volume 8.4; Monocytes # (A) 1.9 k/uL (0-1.0); Monocytes % (A) 8 %; Neutrophils # (A) 19.5 k/uL (1.3-7.7); Neutrophils % (A) 85 %; RBC 3.86 m/uL (4.30-5.90); RDW 12.2 % (11.5-15.5); WBC 22.8 k/uL (3.8-10.6); WBC (Perox) 22.86
[2017-03-01 21:26] LABS: INR 1.3 (<1.2); Partial Thromboplastin Time 28.6 sec (22.0-30.0); Prothrombin Time 12.9 sec (9.0-12.0)
[2017-03-01 21:28] LABS: Appearance,Urine Cloudy (Clear); Bilirubin,Urine Negative (Negative); Glucose,Urine (UA) Negative (Negative); Ketones,Urine Negative (Negative); Leukocyte Esterase,Urine Large (Negative); Mucus,Urine Rare /hpf; Nitrite,Urine Negative (Negative); PH, Urine 5.5 (5.0-8.0); Particle Count 15420; Protein,Urine Trace (Negative); RBC,Urine 17 /hpf (0-5); Specific Gravity,Urine 1.014 (1.001-1.035); UA Billing (MACRO vs. MICRO) MICRO; Urobilinogen,Urine <2.0 mg/dL (<2.0); WBC,Urine >182 /hpf (0-5)
[2017-03-01 21:29] LABS: Calcium 9.5 mg/dL (8.4-10.2); Potassium 4.4 mmol/L (3.5-5.1); Total Bilirubin 1.2 mg/dL (0.2-1.3); Total Protein 6.2 g/dL (6.3-8.2)
[2017-03-01] MEDS ORDERED: LEVOFLOXACIN 750MG-D5W PMX 750 MG in DEXTROSE/WATER 1 150ML.BAG IVPB STA (21:36)
[2017-03-01] MEDS ORDERED: SODIUM CHLORIDE 0.9% 1,000 ML IV ONE ×2 (21:52→22:01)
--- NOTE | 2017-03-01 22:05 | XR ---
EXAMINATION TYPE: XR chest 2V DATE OF EXAM: 03/01/2017 COMPARISON: 01/17/2017 HISTORY: Fever TECHNIQUE: Frontal and lateral views of the chest are obtained. FINDINGS: There is some coarsening of interstitial markings. Heart size is normal. There is no gross heart failure. There is left axillary pacemaker with the lead tips in the right ventricle. There is no pleural effusion. IMPRESSION: There are increased interstitial markings compared to old exam that could relate to mil d interstitial pneumonia. No pulmonary consolidation seen.
[2017-03-02 12:25] LABS: Glucose,Whole Blood 153 mg/dL (75-99)
[2017-03-02] MEDS: ATORVASTATIN 40 MG TAB PO SCH (12:46)
[2017-03-02] MEDS: CHOLECALCIFEROL 1,000 UNIT TAB PO SCH (12:46)
[2017-03-02] MEDS: ASPIRIN 81 MG CHEW PO SCH (12:46)
[2017-03-02] MEDS: metFORMIN 500 MG TAB PO SCH ×2 (12:46→17:46)
[2017-03-02] MEDS: METOPROLOL TARTRATE 25 MG TAB PO SCH ×2 (12:46→21:47)
[2017-03-02] MEDS: amLODIPine 5 MG TAB PO SCH (12:46)
[2017-03-02] MEDS: APIXABAN 2.5 MG TABLET PO SCH ×2 (12:47→21:46)
[2017-03-02] MEDS: LOSARTAN-HCTZ 50-12.5 MG 1 EACH TAB PO SCH (12:47)
[2017-03-02] MEDS: INSULIN LISPRO (humaLOG) 300 UNIT/3 ML VIAL SQ SCH ×3 (12:47→21:47)
[2017-03-02 14:08] LABS: Hemoglobin A1C 7.9 % (4.2-6.1)
[2017-03-02 17:09] LABS: Glucose,Whole Blood 115 mg/dL (75-99)
[2017-03-02 20:47] LABS: Glucose,Whole Blood 132 mg/dL (75-99)
--- NOTE | 2017-03-02 21:41 | P.GSCN ---
History of Present Illness Consult date: 03/02/17 Reason for Consult: Urinary retention/febrile UTI History of present illness: The patient developed urinary retention in late 12/2016. He has been unable to void despite several voiding trials and the use of tamsulosin. Cystometrogram on 02/24 appeared to show normal bladder contractility. He remains unable to void and finished a course of Macrobid last week. He developed a fever to 102 with chills yesterday and was admitted from the ER for IV antibiotics. His catheter was changed in the ER. He is comfortable now and no longer is experiencing chills. He was to have seen Dr Lance on 03/04 for another voiding trial. Review of Systems - Constitutional Denies chills, Denies sweats - Respiratory Denies congestion, Denies cough, Denies wheezing - Gastrointestinal Denies abdominal pain, Denies constipation - Genitourinary Reports as per HPI Past Medical History Past Medical History: Atrial Flutter, Diabetes Mellitus, Hypertension, Syncope Additional Past Medical History / Comment(s): IDDM type II, AVB-complete with pacemaker, paroxysmal A flutter, BPH with IDC, numbness/tingling which pt attributes to injury with rotatiller, some bilateral leg pain with ambulation, arthritis in bilateral knees, ankles and shoulders (limited ROM in shoulders d/ t this). History of Any Multi-Drug Resistant Organisms: None Reported Past Surgical History: Back Surgery, Heart Catheterization, Orthopedic Surgery, Pacemaker Additional Past Surgical History / Comment(s): Laminectomy, anterior cervical discectomy/fusion C4-C6, R shoulder rotator cuff repair, dual chamber pacemaker. Past Anesthesia/Blood Transfusion Reactions: Family Hisory of Malignant Hyperthermia Additional Past Anesthesia/Blood Transfusion Reaction / Comm: Daughter possibly has malignant hyperthermia. Type of Cardiac Device: Permanent Pacemaker Device Placement Date:: 01/16/17 Smoking Status: Former smoker - Past Family History Daughter(s) Family Medical History: Rheumatoid Arthritis (RA) Additional Family Medical History / Comment(s): possuble malignant hyperthermia Father Family Medical History: No Reported History Additional Family Medical History / Comment(s): Father was healthy and lived until age 80yrs. Mother Family Medical History: No Reported History Additional Family Medical History / Comment(s): Mother was healthy and at the age of 77yrs. Medications and Allergies Home Medications Medication Instructions Recorded Confirmed Type Aspirin 81 mg PO DAILY 01/16/17 03/01/17 History Cholecalciferol [Vitamin D3] 2,000 unit PO DAILY 01/16/17 03/01/17 History metFORMIN HCL [Glucophage] 500 mg PO AC-TID 01/17/17 03/01/17 History Losartan-Hctz 50-12.5 mg [Hyzaar 2 tab PO DAILY 03/01/17 03/01/17 History 50-12.5] Allergies Allergy/AdvReac Type Severity Reaction Status Date / Time No Known Allergies Allergy Verified 03/01/17 20:09 Surgical - Exam Vital Signs Temp Pulse Resp BP Pulse Ox 100.3 F H 108 H 20 89/51 92 L 03/01/17 19:08 03/01/17 19:08 03/01/17 19:08 03/01/17 19:08 03/01/17 19:08 - General well developed, well nourished, no pain, obese - ENT no hearing loss, no congestion - Respiratory normal respiratory effort - Abdomen Abdomen: soft, non tender, no organomegaly, no masses Hernia: none - Genitourinary testicles non-tender, other (Ashley catheter in place. Some purulent discharge around catheter at meatus.) - Neurologic no disoriented, no memory loss - Psychiatric speech is normal, memory intact Results - Labs 03/01/17 21:02 03/01/17 21:02 Abnormal Lab Results - Last 24 Hours (Table) 03/01/17 03/01/17 03/02/17 Range/Units 21:02 21:02 12:19 Sodium 132 L (137-145) mmol/L Carbon Dioxide 21 L (22-30) mmol/L BUN 32 H (9-20) mg/dL Creatinine 1.70 H (0.66-1.25) mg/dL Glucose 178 H (74-99) mg/dL POC Glucose (mg/dL) 153 H (75-99) mg/dL Hemoglobin A1c 7.9 H (4.2-6.1) % AST 15 L (17-59) U/L Total Protein 6.2 L (6.3-8.2) g/dL 03/02/17 03/02/17 Range/Units 17:03 20:46 Sodium (137-145) mmol/L Carbon Dioxide (22-30) mmol/L BUN (9-20) mg/dL Creatinine (0.66-1.25) mg/dL Glucose (74-99) mg/dL POC Glucose (mg/dL) 115 H 132 H (75-99) mg/dL Hemoglobin A1c (4.2-6.1) % AST (17-59) U/L Total Protein (6.3-8.2) g/dL Microbiology - Last 24 Hours (Table) 03/01/17 21:02 Urine Culture - Preliminary Urine,Voided Diabetes panel 03/01/17 03/01/17 Range/Units 21:02 21:02 Sodium 132 L (137-145) mmol/L Potassium 4.4 (3.5-5.1) mmol/L Chloride 98 (98-107) mmol/L Carbon Dioxide 21 L (22-30) mmol/L BUN 32 H (9-20) mg/dL Creatinine 1.70 H (0.66-1.25) mg/dL Glucose 178 H (74-99) mg/dL Hemoglobin A1c 7.9 H (4.2-6.1) % Calcium 9.5 (8.4-10.2) mg/dL AST 15 L (17-59) U/L ALT 27 (21-72) U/L Alkaline Phosphatase 69 (38-126) U/L Total Protein 6.2 L (6.3-8.2) g/dL Albumin 3.6 (3.5-5.0) g/dL Calcium panel 03/01/17 Range/Units 21:02 Calcium 9.5 (8.4-10.2) mg/dL Albumin 3.6 (3.5-5.0) g/dL Pituitary panel 03/01/17 Range/Units 21:02 Sodium 132 L (137-145) mmol/L Potassium 4.4 (3.5-5.1) mmol/L Chloride 98 (98-107) mmol/L Carbon Dioxide 21 L (22-30) mmol/L BUN 32 H (9-20) mg/dL Creatinine 1.70 H (0.66-1.25) mg/dL Glucose 178 H (74-99) mg/dL Calcium 9.5 (8.4-10.2) mg/dL Adrenal panel 03/01/17 Range/Units 21:02 Sodium 132 L (137-145) mmol/L Potassium 4.4 (3.5-5.1) mmol/L Chloride 98 (98-107) mmol/L Carbon Dioxide 21 L (22-30) mmol/L BUN 32 H (9-20) mg/dL Creatinine 1.70 H (0.66-1.25) mg/dL Glucose 178 H (74-99) mg/dL Calcium 9.5 (8.4-10.2) mg/dL Total Bilirubin 1.2 (0.2-1.3) mg/dL AST 15 L (17-59) U/L ALT 27 (21-72) U/L Alkaline Phosphatase 69 (38-126) U/L Total Protein 6.2 L (6.3-8.2) g/dL Albumin 3.6 (3.5-5.0) g/dL Assessment and Plan (1) Sepsis Narrative/Plan: The patient appears to have sepsis from a catheter associated UTI. He is currently on Levaquin and has responded as he feels better and his temp is down. Dr Lance will re-evaluate him tomorrow. Status: Acute
[2017-03-02] MEDS: TEMAZEPAM 15 MG CAP PO PRN (21:46)
[2017-03-02] MEDS: TAMSULOSIN 0.4 MG CAP.ER.24H PO SCH (21:47)
[2017-03-02] MEDS ORDERED: LEVOFLOXACIN 750MG-D5W PMX 750 MG in DEXTROSE/WATER 1 150ML.BAG IVPB SCH (22:00)
[2017-03-03 07:29] LABS: Glucose,Whole Blood 108 mg/dL (75-99)
[2017-03-03] MEDS: INSULIN LISPRO (humaLOG) 300 UNIT/3 ML VIAL SQ SCH ×4 (08:20→20:48)
[2017-03-03] MEDS: APIXABAN 2.5 MG TABLET PO SCH ×2 (08:21→20:43)
[2017-03-03] MEDS: METOPROLOL TARTRATE 25 MG TAB PO SCH ×2 (08:21→20:43)
[2017-03-03] MEDS: metFORMIN 500 MG TAB PO SCH ×3 (08:21→17:42)
[2017-03-03] MEDS: ATORVASTATIN 40 MG TAB PO SCH (08:21)
[2017-03-03] MEDS: LOSARTAN-HCTZ 50-12.5 MG 1 EACH TAB PO SCH (08:21)
[2017-03-03] MEDS: ASPIRIN 81 MG CHEW PO SCH (08:21)
[2017-03-03] MEDS: amLODIPine 5 MG TAB PO SCH (08:21)
[2017-03-03] MEDS: CHOLECALCIFEROL 1,000 UNIT TAB PO SCH (08:22)
[2017-03-03] MEDS ORDERED: LEVOFLOXACIN 750MG-D5W PMX 750 MG in DEXTROSE/WATER 1 150ML.BAG IVPB SCH (09:00)
[2017-03-03 12:01] LABS: Glucose,Whole Blood 126 mg/dL (75-99)
--- NOTE | 2017-03-03 12:45 | HP ---
DATE OF ADMISSION: 03/02/17 CHIEF COMPLAINT: Fever. HISTORY OF PRESENT ILLNESS: This 86-year-old gentleman with past medical history of atrial flutter, diabetes mellitus, hypertension, being followed by Dr. Finn Alva in the outpatient setting was recently admitted. The patient had urinary Ashley catheter insertion because of urinary retention. The patient had recurrent fevers and chills. The patient came to [facility] with features of UTI and the patient admitted to the hospital for further evaluation and treatment. The patient was noted to have normal bladder contraction in the outpatient setting. The patient seeing urology. The patient was on outpatient antibiotics. Because of fever, the patient came to the hospital. Urology evaluation on 03/04 is pending for possible voiding trial at this time. The patient started on Levaquin. The white count was elevated at 22.8 on admission. There is no history of any headache, loss of consciousness or seizures. Past medical history of atrial fibrillation, diabetes, hypertension, AV block, with pacemaker recently. Medications prior to admission include: 1. Glucophage 500 mg a.c. t.i.d. 2. Norvasc 5 mg daily. 3. Flomax 0.5 mg q6h. 4. Lopressor 25 mg po b.i.d. 5. Hyzaar two tablets po daily. 6. Vitamin D3 2000 daily. 7. Lipitor 40 mg daily. 8. Aspirin 81 mg daily. 9. Eliquis 2.5 mg po b.i.d. ALLERGIES: None. FAMILY HISTORY: History of rheumatoid arthritis and possible hypothermia. SOCIAL HISTORY: History of occasional alcohol. Previous history of smoking. REVIEW OF SYSTEMS: HEENT: No diminished vision. No diminished hearing. Cardiovascular system: As mentioned earlier. Respiratory: As mentioned earlier. GI: As mentioned earlier. : No dysuria. Nervous system: No numbness, weakness. Allergy/Immunology: No asthma or hayfever. Musculoskeletal : As mentioned earlier. Hematology/oncology: No history of anemia. Endocrine: History of diabetes. Constitutional: As mentioned earlier. Dermatology: Negative. Rheumatology: Negative. Psychiatry: As mentioned earlier. PHYSICAL EXAMINATION: The patient is alert, oriented times three. Pulse 90. Blood pressure 146/52. Respiratory rate 18, temperature 96.7. T-max was 100.3. Pulse ox 97% on room air. HEENT: Conjunctivae normal. NECK: No JVD. Cardiovascular: S1, S2 muffled. Respiratory: Breath sounds diminished at the bases. A few scattered rhonchi and crackles. Abdomen is soft, nontender, no mass palpable. Legs: No edema. No swelling. Nervous system: Higher functions as mentioned earlier. Moves all four limbs. No focal deficits. Lymphatics: No lymph nodes palpable in the neck, axilla or groin. Skin: No ulcer, rash or bleeding. LABS: WBC 22.1, hemoglobin 12.2. Creatinine 1.7. ASSESSMENT: 1. Acute urinary tract infection with sepsis, present on admission. Possibly secondary to urinary catheter. 2. Indwelling Ashley catheter because of urinary obstruction. 3. Increased WBC. 4. Increased creatinine with acute renal failure. 5. Atrial flutter. 6. Diabetes mellitus. 7. Hypertension. 8. History of recent pacemaker implant. RECOMMENDATIONS AND DISCUSSION: Continue the current medications, continue symptomatic treatment. Broad spectrum IV antibiotics. Follow cultures. Urology evaluation. Otherwise at this time, we will continue to monitor. Guarded prognosis because of multiple medical problems. Further recommendations to follow. MTDD
[2017-03-03 17:18] LABS: Glucose,Whole Blood 145 mg/dL (75-99)
[2017-03-03 17:31] LABS: Anion Gap 10 mmol/L; Blood Urea Nitrogen 22 mg/dL (9-20); Calcium 8.7 mg/dL (8.4-10.2); Carbon Dioxide 21 mmol/L (22-30); Chloride 103 mmol/L (98-107); Glucose 128 mg/dL (74-99); Non-African American GFR(MDRD) 59 (>60 ml/min/1.73 sqM); Potassium 3.9 mmol/L (3.5-5.1); Sodium 134 mmol/L (137-145)
[2017-03-03 17:41] LABS: Basophils % (A) 0 %; CH 30.4; CHCM 33.6; Eosinophils # (A) 0.3 k/uL (0-0.7); Eosinophils % (A) 2 %; HCT 33.5 % (39.0-53.0); HDW 2.45; HGB 11.4 gm/dL (13.0-17.5); Luc # (Auto) 0.43; Luc % (Auto) 3; Lymphocytes # (A) 0.9 k/uL (1.0-4.8); Lymphocytes % (A) 7 %; MCH 30.9 pg (25.0-35.0); MCHC 33.9 g/dL (31.0-37.0); Mean Platelet Volume 8.2; Monocytes # (A) 0.9 k/uL (0-1.0); Monocytes % (A) 7 %; Neutrophils # (A) 10.9 k/uL (1.3-7.7); Neutrophils % (A) 81 %; RBC 3.68 m/uL (4.30-5.90); RDW 12.3 % (11.5-15.5); WBC 13.6 k/uL (3.8-10.6); WBC (Perox) 13.94
--- NOTE | 2017-03-03 19:26 | PN ---
DATE OF SERVICE: 03/03/2017 This 86-year-old gentleman, admitted with fever and UTI with sepsis, has an indwelling Ashley catheter. Urology is following the patient closely. On exam, alert and oriented x2. Pulse 81, blood pressure 118/88, respiration 16 , temperature 97.1, pulse ox 94% on room air. HEENT: Conjunctivae normal. NECK: No jugular venous distention. CARDIOVASCULAR: S1, S2 muffled. RESPIRATORY: Breath sounds diminished at the bases. A few scattered rhonchi. ABDOMEN: Soft. Non-tender. LEGS: No edema. No swelling. NERVOUS SYSTEM: No focal deficit. LABS: WBC 22.8, hemoglobin 12.2. Today's labs are not available. REVIEW OF SYSTEMS: CARVIOVASCULAR SYSTEM: No angina, palpitations. RESPIRATORY SYSTEM: As mentioned earlier. GI: As mentioned earlier. : No dysuria, retention. Current medications are reviewed and include: 1. Tylenol p.r.n. 2. Eliquis 2.5 b.i.d. 3. Aspirin. 4. Lipitor. 5. Vitamin D3. 6. Humalog. 7. Levaquin daily. 8. Flomax. 9. Restoril. Cultures are showing Gram-negative bacilli. ASSESSMENT: 1. Acute urinary tract infection with sepsis, present on admission, possibly secondary to indwelling Ashley catheter. 2. Indwelling Ashley catheter because of urinary obstruction. 3. Increased white count. 4. Increased creatinine with mild acute renal failure. 5. Atrial flutter history. 6. Diabetes mellitus, type 2. RECOMMENDATIONS AND DISCUSSION: I recommend to continue the current medications , continue with symptomatic treatment. Continue with the antibiotics. Otherwise , I would recommend continuing to follow with Urology. Monitor blood sugars closely. DVT prophylaxis. Await final ID of the organism. Further recommendations to follow. MTDD
[2017-03-03] MEDS: TAMSULOSIN 0.4 MG CAP.ER.24H PO SCH (20:43)
[2017-03-03] MEDS: TEMAZEPAM 15 MG CAP PO PRN (20:43)
[2017-03-03 20:48] LABS: Glucose,Whole Blood 116 mg/dL (75-99)
[2017-03-04] MEDS: MELATONIN 3 MG TABLET PO SCH ×3 (01:09→22:05)
[2017-03-04 07:05] LABS: Glucose,Whole Blood 136 mg/dL (75-99)
[2017-03-04 08:33] LABS: Basophils % (A) 0 %; CH 31.4; CHCM 33.6; Eosinophils # (A) 0.4 k/uL (0-0.7); Eosinophils % (A) 3 %; HCT 34.8 % (39.0-53.0); HGB 11.4 gm/dL (13.0-17.5); Luc # (Auto) 0.27; Luc % (Auto) 2; Lymphocytes % (A) 9 %; MCH 30.8 pg (25.0-35.0); MCHC 32.8 g/dL (31.0-37.0); MCV 93.8 fL (80.0-100.0); Mean Platelet Volume 9.3; Monocytes # (A) 0.8 k/uL (0-1.0); Monocytes % (A) 7 %; Neutrophils % (A) 78 %; RBC 3.71 m/uL (4.30-5.90); RDW 13.3 % (11.5-15.5); WBC 11.5 k/uL (3.8-10.6)
[2017-03-04] MEDS: LOSARTAN-HCTZ 50-12.5 MG 1 EACH TAB PO SCH (08:43)
[2017-03-04] MEDS: INSULIN LISPRO (humaLOG) 300 UNIT/3 ML VIAL SQ SCH ×4 (08:43→20:28)
[2017-03-04] MEDS: METOPROLOL TARTRATE 25 MG TAB PO SCH ×2 (08:43→20:22)
[2017-03-04] MEDS: ATORVASTATIN 40 MG TAB PO SCH (08:44)
[2017-03-04] MEDS: APIXABAN 2.5 MG TABLET PO SCH ×2 (08:44→20:21)
[2017-03-04] MEDS: metFORMIN 500 MG TAB PO SCH ×3 (08:44→16:59)
[2017-03-04] MEDS: CHOLECALCIFEROL 1,000 UNIT TAB PO SCH (08:45)
[2017-03-04] MEDS: ASPIRIN 81 MG CHEW PO SCH (08:45)
[2017-03-04] MEDS: amLODIPine 5 MG TAB PO SCH (08:45)
[2017-03-04 09:12] LABS: Anion Gap 10 mmol/L; Blood Urea Nitrogen 24 mg/dL (9-20); Calcium 8.8 mg/dL (8.4-10.2); Carbon Dioxide 24 mmol/L (22-30); Chloride 103 mmol/L (98-107); Glucose 122 mg/dL (74-99); Non-African American GFR(MDRD) 53 (>60 ml/min/1.73 sqM); Potassium 4.1 mmol/L (3.5-5.1); Sodium 137 mmol/L (137-145)
[2017-03-04 12:30] LABS: Glucose,Whole Blood 137 mg/dL (75-99)
[2017-03-04] MEDS: ACETAMINOPHEN TAB 325 MG TAB PO PRN (12:42)
--- NOTE | 2017-03-04 13:07 | P.PN ---
Progress Note - Text Mr. Munoz is afebrile. He has no complaints. His WBC count today was 11.5. His urine culture has shown greater than 100,000 Pseudomonas species, sensitive to Levaquin. I have suggested that the Ashley catheter be removed tomorrow morning for a repeat voiding trial. He is receiving tamsulosin. I believe he could be discharged home tomorrow on oral Levaquin or ciprofloxacin. If he is able to void and empty his bladder sufficiently, he could be discharged home without the catheter. Conversely, if he is unable to void or if the postvoid residual was consistent with incomplete bladder emptying, he should be discharged home with the Ashley catheter.
[2017-03-04] MEDS: DOCUSATE 100 MG CAP PO SCH ×2 (16:59→20:22)
[2017-03-04] MEDS: SENNOSIDES-DOCUSATE SODIUM 1 EACH TAB PO SCH ×2 (16:59→20:22)
[2017-03-04 17:00] LABS: Glucose,Whole Blood 133 mg/dL (75-99)
[2017-03-04] MEDS: TAMSULOSIN 0.4 MG CAP.ER.24H PO SCH (20:22)
[2017-03-04 20:28] LABS: Glucose,Whole Blood 153 mg/dL (75-99)
[2017-03-04 22:45] VITALS: RESP 16
[2017-03-05] MEDS: METOPROLOL TARTRATE 25 MG TAB PO SCH ×2 (00:18→09:23)
[2017-03-05] MEDS: ACETAMINOPHEN TAB 325 MG TAB PO PRN (01:49)
[2017-03-05 07:58] LABS: Basophils # (A) 0.1 k/uL (0-0.2); Basophils % (A) 1 %; CH 31.4; CHCM 33.4; Eosinophils # (A) 0.5 k/uL (0-0.7); Eosinophils % (A) 6 %; HCT 35.2 % (39.0-53.0); HDW 2.39; HGB 11.3 gm/dL (13.0-17.5); Luc # (Auto) 0.22; Luc % (Auto) 3; Lymphocytes # (A) 1.1 k/uL (1.0-4.8); Lymphocytes % (A) 12 %; MCH 30.5 pg (25.0-35.0); MCHC 32.2 g/dL (31.0-37.0); MCV 94.5 fL (80.0-100.0); Mean Platelet Volume 8.8; Monocytes # (A) 0.7 k/uL (0-1.0); Monocytes % (A) 8 %; Neutrophils # (A) 6.1 k/uL (1.3-7.7); Neutrophils % (A) 71 %; RBC 3.72 m/uL (4.30-5.90); RDW 12.9 % (11.5-15.5); WBC 8.7 k/uL (3.8-10.6); WBC (Perox) 9.09
[2017-03-05 07:58] LABS: Glucose,Whole Blood 113 mg/dL (75-99)
[2017-03-05 08:25] LABS: Anion Gap 8 mmol/L; Blood Urea Nitrogen 23 mg/dL (9-20); Carbon Dioxide 25 mmol/L (22-30); Chloride 104 mmol/L (98-107); Glucose 114 mg/dL (74-99); Non-African American GFR(MDRD) 59 (>60 ml/min/1.73 sqM); Potassium 3.9 mmol/L (3.5-5.1); Sodium 137 mmol/L (137-145)
[2017-03-05] MEDS: INSULIN LISPRO (humaLOG) 300 UNIT/3 ML VIAL SQ SCH ×3 (08:30→17:25)
[2017-03-05] MEDS: metFORMIN 500 MG TAB PO SCH ×3 (08:32→17:27)
[2017-03-05] MEDS ORDERED: LEVOFLOXACIN 750 MG TAB PO SCH (09:00)
[2017-03-05] MEDS: ASPIRIN 81 MG CHEW PO SCH (09:23)
[2017-03-05] MEDS: amLODIPine 5 MG TAB PO SCH (09:23)
[2017-03-05] MEDS: CHOLECALCIFEROL 1,000 UNIT TAB PO SCH (09:23)
[2017-03-05] MEDS: LOSARTAN-HCTZ 50-12.5 MG 1 EACH TAB PO SCH (09:24)
[2017-03-05] MEDS: APIXABAN 2.5 MG TABLET PO SCH (09:24)
[2017-03-05] MEDS: ATORVASTATIN 40 MG TAB PO SCH (09:24)
[2017-03-05] MEDS: SENNOSIDES-DOCUSATE SODIUM 1 EACH TAB PO SCH (09:24)
[2017-03-05] MEDS: DOCUSATE 100 MG CAP PO SCH (09:24)
--- NOTE | 2017-03-05 10:06 | P.PN ---
Subjective Service the . Personal being dictated for Dr. Mueller. Interval history: This is an 86-year-old gentleman admitted with acute UTI with sepsis, secondary to indwelling Ashley catheter. UTI culture reporting pseudomonas aeruginosa. Maintained on Levaquin. Evaluated by urology with recommendations noted. Afebrile, and WBC improving. Denies chest pain, palpitations or increasing shortness of breath. Objective - Vital Signs Vital signs: Vital Signs Temp 97.5 F L 03/04/17 07:00 Pulse 66 03/04/17 07:00 Resp 16 03/04/17 07:00 BP 117/59 03/04/17 07:00 Pulse Ox 96 03/04/17 07:00 Intake & Output 03/03/17 03/04/17 03/04/17 18:59 06:59 18:59 Output Total 500 1700 Balance -500 -1700 Weight 84.5 kg Output: Urine 500 1700 Other: Voiding Method Indwelling Catheter Indwelling Catheter Indwelling Catheter # Voids 1 - Exam PHYSICAL EXAM: VITAL SIGNS: As above GENERAL: [Sitting up in bed, no acute distress] HEENT: [Pupils equal conjunctiva normal. Oral mucosa moist] NECK: [Supple, no JVD] RESPIRATORY EFFORT:[ Normal] LUNGS: [Bilateral bases diminished no wheezes, rhonchi or crackles] CARDIOVASCULAR[ regular S1 and S2, no murmurs rubs or gallops, no edema] GI: [Abdomen soft, nontender, positive bowel sounds.] PSYCH: [Alert and oriented -3, mood and affect normal.] SKIN: [No rashes] NEURO: [No focal deficits] Microbiology 03/01/17 21:02 Blood Blood Culture - Preliminary No Growth after 72 hours 03/01/17 21:02 Urine,Voided Urine Culture - Final Pseudomonas aeruginosa - Labs CBC & Chem 7: 03/05/17 07:20 03/05/17 07:20 Labs: Abnormal Lab Results - Last 24 Hours (Table) 03/03/17 03/03/17 03/03/17 Range/Units 17:05 17:05 17:11 WBC 13.6 H (3.8-10.6) k/uL RBC 3.68 L (4.30-5.90) m/uL Hgb 11.4 L (13.0-17.5) gm/dL Hct 33.5 L (39.0-53.0) % Neutrophils # 10.9 H (1.3-7.7) k/uL Lymphocytes # 0.9 L (1.0-4.8) k/uL Sodium 134 L (137-145) mmol/L Carbon Dioxide 21 L (22-30) mmol/L BUN 22 H (9-20) mg/dL Creatinine (0.66-1.25) mg/dL Glucose 128 H (74-99) mg/dL POC Glucose (mg/dL) 145 H (75-99) mg/dL 03/03/17 03/04/17 03/04/17 Range/Units 20:47 06:58 07:32 WBC 11.5 H (3.8-10.6) k/uL RBC 3.71 L (4.30-5.90) m/uL Hgb 11.4 L (13.0-17.5) gm/dL Hct 34.8 L (39.0-53.0) % Neutrophils # 9.0 H (1.3-7.7) k/uL Lymphocytes # (1.0-4.8) k/uL Sodium (137-145) mmol/L Carbon Dioxide (22-30) mmol/L BUN (9-20) mg/dL Creatinine (0.66-1.25) mg/dL Glucose (74-99) mg/dL POC Glucose (mg/dL) 116 H 136 H (75-99) mg/dL 03/04/17 Range/Units 07:32 WBC (3.8-10.6) k/uL RBC (4.30-5.90) m/uL Hgb (13.0-17.5) gm/dL Hct (39.0-53.0) % Neutrophils # (1.3-7.7) k/uL Lymphocytes # (1.0-4.8) k/uL Sodium (137-145) mmol/L Carbon Dioxide (22-30) mmol/L BUN 24 H (9-20) mg/dL Creatinine 1.28 H (0.66-1.25) mg/dL Glucose 122 H (74-99) mg/dL POC Glucose (mg/dL) (75-99) mg/dL Microbiology - Last 24 Hours (Table) 03/01/17 21:02 Urine Culture - Final Urine,Voided Pseudomonas aeruginosa 03/01/17 21:02 Blood Culture - Preliminary Blood No Growth after 48 hours Assessment and Plan Plan: 1. [ Acute UTI-pseudomonas aeruginosa with sepsis secondary to indwelling Ashley catheter, present on admission]. 2. [ Indwelling Ashley catheter secondary to urinary obstruction]. 3. [ Leukocytosis]. 4. [ Acute renal failure]. 5. [ Diabetes mellitus type 2]. Plan: Continue on current medication regime ,monitoring and symptomatic treatment. Ashley catheter to be discontinued tomorrow as per urology with repeat voiding trials. Discharge planning in progress for tomorrow. The impression and plan of care has been dictated as directed. : I performed a H&P examination of this patient and discussed the same with the dictator. I agree with the dictator's note. Any additional findings/opinions/ etc. will be noted.
[2017-03-05 12:42] LABS: Glucose,Whole Blood 128 mg/dL (75-99)
[2017-03-05 16:18] VITALS: BP 118/71; PULSE 74; TEMP 97.1
[2017-03-05 17:25] LABS: Glucose,Whole Blood 104 mg/dL (75-99)
--- NOTE | 2017-03-05 17:30 | P.PN ---
Progress Note - Text Mr. Munoz's condition is stable. He has no complaints. He is afebrile. His WBC count and creatinine level are normal. He was unable to void today, and the Ashley catheter was therefore replaced. In view of his persistent urinary retention, he will be discharged home with the Ashley catheter. Levaquin has been prescribed. Given that he takes Eliquis, I feel he is better suited for a laser prostatectomy than a TURP. Outpatient arrangements will be made for this.
== END 2017-03-05 18:30 | disposition home health service (06) | DRG 698 ==
LOC: EC 19:07 → 4MS4W 21:51
PROVIDERS: ADMIT Hospitalist; ATTEND Hospitalist
DX: T83.511A Infection and inflammatory reaction due to indwelling urethral catheter, initial encounter (principal); A41.9 Sepsis, unspecified organism; N17.9 Acute kidney failure, unspecified; I48.92 Unspecified atrial flutter; N13.8 Other obstructive and reflux uropathy; E11.9 Type 2 diabetes mellitus without complications; B96.5 Pseudomonas (aeruginosa) (mallei) (pseudomallei) as the cause of diseases classified elsewhere; I10 Essential (primary) hypertension; I48.91 Unspecified atrial fibrillation; N39.0 Urinary tract infection, site not specified; N40.1 Benign prostatic hyperplasia with lower urinary tract symptoms; M15.9 Polyosteoarthritis, unspecified; Z79.01 Long term (current) use of anticoagulants; Z79.82 Long term (current) use of aspirin; Z79.84 Long term (current) use of oral hypoglycemic drugs; Z79.899 Other long term (current) drug therapy; Z87.891 Personal history of nicotine dependence; Z98.1 Arthrodesis status; Z95.0 Presence of cardiac pacemaker
CPT/HCPCS: 36415; 71020; 80048; 80053; 81001; 83036; 83605; 85025; 85610; 85730; 87040; 87077; 87086; 87186; 93005; 96361; 96365; 96366; 99285

== ENCOUNTER 2017-04-07 18:26 | Emergency (ER) | payer MEDICARE, BC ==
[2017-04-07 18:50] VITALS: TEMP 97.1
[2017-04-07 20:07] VITALS: BP 118/57; PULSE 60; RESP 17
--- NOTE | 2017-04-07 20:10 | ED ---
General Adult HPI - General Chief complaint: Urogenital Stated complaint: Catheter Fell out Time Seen by Provider: 04/07/17 18:50 Source: patient, RN notes reviewed Mode of arrival: ambulatory Limitations: no limitations - History of Present Illness Initial comments: This is an 86-year-old male who presents emergency department after having had a procedure this morning on his prostate. Patient states he put a catheter in however on the way home the catheter slipped out it appeared that the balloon is broken. Patient states he was getting some suprapubic discomfort was unable to urinate so he came to the emergency department. We placed a catheter and the patient and patient felt back to baseline and had no discomfort whatsoever. Patient has no other complaints. - Related Data Home Medications Medication Instructions Recorded Confirmed Aspirin 81 mg PO DAILY 01/16/17 03/01/17 Cholecalciferol [Vitamin D3] 2,000 unit PO DAILY 01/16/17 03/01/17 metFORMIN HCL [Glucophage] 500 mg PO AC-TID 01/17/17 03/01/17 Losartan-Hctz 50-12.5 mg [Hyzaar 2 tab PO DAILY 03/01/17 03/01/17 50-12.5] Previous Rx's Medication Instructions Recorded Atorvastatin [Lipitor] 40 mg PO DAILY #60 tab 01/17/17 amLODIPine [Norvasc] 5 mg PO DAILY #60 tab 01/17/17 Apixaban [Eliquis] 2.5 mg PO BID tab 01/19/17 Metoprolol Tartrate [Lopressor] 25 mg PO BID #60 tab 01/19/17 Tamsulosin [Flomax] 0.4 mg PO HS #30 cap 01/19/17 Docusate [Colace] 100 mg PO BID #30 cap 03/05/17 Levofloxacin [Levaquin] 750 mg PO Q48H #7 tab 03/05/17 Allergies Allergy/AdvReac Type Severity Reaction Status Date / Time No Known Allergies Allergy Verified 04/07/17 18:50 Review of Systems ROS Statement: Those systems with pertinent positive or pertinent negative responses have been documented in the HPI. ROS Other: All systems not noted in ROS Statement are negative. Past Medical History Past Medical History: Atrial Flutter, Diabetes Mellitus, Hypertension, Syncope Additional Past Medical History / Comment(s): IDDM type II, AVB-complete with pacemaker, paroxysmal A flutter, BPH with IDC, numbness/tingling which pt attributes to injury with rotatiller, some bilateral leg pain with ambulation, arthritis in bilateral knees, ankles and shoulders (limited ROM in shoulders d/ t this). History of Any Multi-Drug Resistant Organisms: None Reported Past Surgical History: Back Surgery, Heart Catheterization, Orthopedic Surgery, Pacemaker Additional Past Surgical History / Comment(s): Laminectomy, anterior cervical discectomy/fusion C4-C6, R shoulder rotator cuff repair, dual chamber pacemaker. Laser vaporization of the prostate 04-07-17 Past Anesthesia/Blood Transfusion Reactions: Family Hisory of Malignant Hyperthermia Additional Past Anesthesia/Blood Transfusion Reaction / Comment(s): Daughter possibly has malignant hyperthermia. Type of Cardiac Device: Permanent Pacemaker Device Placement Date:: 01/16/17 Past Psychological History: No Psychological Hx Reported Smoking Status: Former smoker Past Alcohol Use History: None Reported Past Drug Use History: None Reported - Past Family History Daughter(s) Family Medical History: Rheumatoid Arthritis (RA) Additional Family Medical History / Comment(s): possuble malignant hyperthermia Father Family Medical History: No Reported History Additional Family Medical History / Comment(s): Father was healthy and lived until age 80yrs. Mother Family Medical History: No Reported History Additional Family Medical History / Comment(s): Mother was healthy and at the age of 77yrs. General Exam - General Exam Comments Initial Comments: GENERAL Patient is well-developed and well-nourished. Patient is in mild distress. EYES Patient's pupils are equal and round. Extraocular motion is intact SKIN Unremarkable ABDOMINAL Patient initially had some mild suprapubic tenderness after the catheter he had no tenderness. NEURO The patient is alert and oriented 3 PYSCH Patient has normal interpersonal interactions. Limitations: no limitations Course Vital Signs 04/07/17 04/07/17 18:47 20:06 Temperature 97.1 F L Pulse Rate 66 60 Respiratory 18 17 Rate Blood Pressure 85/50 118/57 O2 Sat by Pulse 98 98 Oximetry Disposition Clinical Impression: Urinary retention Disposition: HOME SELF-CARE Condition: Good Instructions: Urinary Retention in Men (ED) Referrals: Finn Alva MD [Primary Care Provider] - 1-2 days Time of Disposition: 20:10
== END 2017-04-07 20:39 | disposition home or self-care (01) ==
LOC: EC 18:26
DX: R33.9 Retention of urine, unspecified (principal); I10 Essential (primary) hypertension; E11.9 Type 2 diabetes mellitus without complications; M17.0 Bilateral primary osteoarthritis of knee; M19.011 Primary osteoarthritis, right shoulder; M19.012 Primary osteoarthritis, left shoulder; M19.071 Primary osteoarthritis, right ankle and foot; Z87.891 Personal history of nicotine dependence; Z79.82 Long term (current) use of aspirin; Z79.84 Long term (current) use of oral hypoglycemic drugs; Z79.899 Other long term (current) drug therapy
CPT/HCPCS: 51702; 99283

== ENCOUNTER → 2017-04-09 | Outpatient (CLI) | payer MEDICARE, BC ==
[2017-04-09 09:42] LABS: Basophils % (A) 0 %; CH 30.6; CHCM 32.2; Eosinophils # (A) 0.2 k/uL (0-0.7); Eosinophils % (A) 3 %; HCT 33.9 % (39.0-53.0); HDW 2.38; HGB 11.1 gm/dL (13.0-17.5); Luc # (Auto) 0.18; Luc % (Auto) 2; Lymphocytes # (A) 1.1 k/uL (1.0-4.8); Lymphocytes % (A) 14 %; MCH 31.2 pg (25.0-35.0); MCHC 32.7 g/dL (31.0-37.0); MCV 95.4 fL (80.0-100.0); Monocytes # (A) 0.7 k/uL (0-1.0); Monocytes % (A) 8 %; Neutrophils # (A) 6.2 k/uL (1.3-7.7); Neutrophils % (A) 73 %; RBC 3.55 m/uL (4.30-5.90); RDW 12.8 % (11.5-15.5); WBC 8.4 k/uL (3.8-10.6); WBC (Perox) 8.71
[2017-04-09 10:08] LABS: Carbon Dioxide 22 mmol/L (22-30); Chloride 104 mmol/L (98-107); Glucose 125 mg/dL (74-99); Potassium 4.5 mmol/L (3.5-5.1); Sodium 137 mmol/L (137-145)
[2017-04-09 10:09] LABS: ALT 25 U/L (21-72); AST 18 U/L (17-59); Alkaline Phosphatase 64 U/L (38-126); Anion Gap 11 mmol/L; Blood Urea Nitrogen 21 mg/dL (9-20); Calcium 9.6 mg/dL (8.4-10.2); Cholesterol 123 mg/dL (<200); HDL Cholesterol 54 mg/dL (40-60); Non-African American GFR(MDRD) >60 (>60 ml/min/1.73 sqM); Total Bilirubin 0.9 mg/dL (0.2-1.3); Total Protein 6.8 g/dL (6.3-8.2)
[2017-04-09 13:07] LABS: Hemoglobin A1C 6.9 % (4.2-6.1)
== END | disposition home or self-care (01) ==
LOC: LABWHC1 08:54
PROVIDERS: ATTEND Internal Medicine
DX: E78.5 Hyperlipidemia, unspecified (principal); I10 Essential (primary) hypertension; E11.49 Type 2 diabetes mellitus with other diabetic neurological complication
CPT/HCPCS: 36415; 80053; 80061; 83036; 85025

== ENCOUNTER → 2017-04-26 | Outpatient (CLI) | payer MEDICARE, BC ==
[2017-04-26 12:39] LABS: Anion Gap 14 mmol/L; Blood Urea Nitrogen 30 mg/dL (9-20); Calcium 9.9 mg/dL (8.4-10.2); Carbon Dioxide 25 mmol/L (22-30); Chloride 99 mmol/L (98-107); Glucose 151 mg/dL (74-99); Non-African American GFR(MDRD) >60 (>60 ml/min/1.73 sqM); Potassium 4.6 mmol/L (3.5-5.1); Sodium 138 mmol/L (137-145)
== END | disposition home or self-care (01) ==
LOC: LABWHC1 11:42
PROVIDERS: ATTEND Internal Medicine Interventional Cardiology
DX: I49.5 Sick sinus syndrome (principal); I10 Essential (primary) hypertension
CPT/HCPCS: 36415; 80048

== ENCOUNTER 2020-04-16 16:04 | Emergency (ER) | payer MEDICARE ==
[2020-04-16 16:15] VITALS: PULSE 65
[2020-04-16 17:30] LABS: Basophils # (A) 0.1 k/uL (0-0.2); Basophils % (A) 1 %; Eosinophils # (A) 0.2 k/uL (0-0.7); Eosinophils % (A) 3 %; HCT 34.4 % (39.0-53.0); HGB 11.1 gm/dL (13.0-17.5); Lymphocytes # (A) 1.4 k/uL (1.0-4.8); Lymphocytes % (A) 16 %; MCHC 32.4 g/dL (31.0-37.0); MCV 92.7 fL (80.0-100.0); Mean Platelet Volume 7.7; Monocytes # (A) 0.9 k/uL (0-1.0); Monocytes % (A) 10 %; Neutrophils # (A) 5.8 k/uL (1.3-7.7); Neutrophils % (A) 68 %; Platelet Count 240 k/uL (150-450); RBC 3.71 m/uL (4.30-5.90); RDW 12.7 % (11.5-15.5); WBC 8.5 k/uL (3.8-10.6)
--- NOTE | 2020-04-16 17:34 | US ---
EXAMINATION TYPE: US venous doppler duplex LE LT DATE OF EXAM: 04/16/2020 5:10 PM COMPARISON: NONE CLINICAL HISTORY: bruising . Swelling in left calf and discolored SIDE PERFORMED: Left TECHNIQUE: The lower extremity deep venous system is examined utilizing real time linear array sonog bhavin with graded compression, doppler sonography and color-flow sonography. VESSELS IMAGED: External Iliac Vein (EIV) Common Femoral Vein Deep Femoral Vein Greater Saphenous Vein * Femoral Vein Popliteal Vein Small Saphenous Vein * Proximal Calf Veins (* superficial vessels) Left Leg: Veins within the upper leg appear negative for DVT, however I was unable to obtain good im ages of popiteal veins due to large complex cystic lesion noted anterior to popiteal vessels and flui d collection travels down to mid calf. IMPRESSION: No evidence of deep vein thrombosis in the left leg. There is a complex mass in the popli teal fossa that is consistent with complex popliteal cyst.
[2020-04-16 17:38] LABS: Partial Thromboplastin Time 25.1 sec (22.0-30.0); Prothrombin Time 10.6 sec (9.0-12.0)
[2020-04-16 17:45] LABS: Calcium 9.5 mg/dL (8.4-10.2); Potassium 4.9 mmol/L (3.5-5.1); Total Bilirubin 0.7 mg/dL (0.2-1.3); Total Protein 7.1 g/dL (6.3-8.2)
--- NOTE | 2020-04-16 18:14 | ED ---
Extremity Problem HPI - General Chief complaint: Extremity Problem,Nontraumatic Stated complaint: left leg swelling Time Seen by Provider: 04/16/20 16:15 Source: patient Mode of arrival: wheelchair Limitations: no limitations - History of Present Illness Initial comments: 89-year-old male with past medical history of A. fib, diabetes on Eliquis who presents to the emergency department with reported left lower extremity swelling. Granddaughter is at bedside and helps with the history. States that the swelling is been present for the past 12 days. It extends from the mid femur down to the foot. The patient has pain when ambulating. Swelling is been consistent. The patient also began having ecchymosis over the dorsal aspect of his distal femur and around his ankle. He is on Eliquis however is concern for DVT. Denies missing any of his doses. He did see his primary care doctor where laboratory studies were completed. Does have a mild history of diastolic heart failure. Denies pedal edema at baseline. Denies any chest pain or shortness of breath. No history of DVT or PE. No known trauma to the area. Denies any numbness or tingling the extremity. No weakness. No other alleviating, precipitating or modifying factors - Related Data Home Medications Medication Instructions Recorded Confirmed Cholecalciferol [Vitamin D3 (25 2,000 unit PO DAILY@0800 01/16/17 04/16/20 Mcg = 1000 Iu)] metFORMIN HCL [Glucophage] 500 mg PO TID@0800,1199,199901/17/17 04/16/20 Apixaban [Eliquis] 2.5 mg PO BID@08,199904/07/17 04/16/20 Atorvastatin [Lipitor] 20 mg PO MOWEFR 04/16/20 04/16/20 Furosemide [Lasix] 30 mg PO DAILY@79904/16/20 04/16/20 Metoprolol Tartrate [Lopressor] 25 mg PO BID@08,199904/16/20 04/16/20 Spironolactone 12.5 mg PO DAILY@79904/16/20 04/16/20 Tamsulosin [Flomax] 0.4 mg PO HS@199904/16/20 04/16/20 Turmeric Root Extract [Turmeric] 500 mg PO BID@0800,199904/16/20 04/16/20 Allergies Allergy/AdvReac Type Severity Reaction Status Date / Time No Known Allergies Allergy Verified 04/16/20 17:41 Review of Systems ROS Statement: Those systems with pertinent positive or pertinent negative responses have been documented in the HPI. ROS Other: All systems not noted in ROS Statement are negative. Past Medical History Past Medical History: Atrial Flutter, Diabetes Mellitus, Hypertension, Syncope Additional Past Medical History / Comment(s): IDDM type II, AVB-complete with pacemaker, paroxysmal A flutter, BPH with IDC, numbness/tingling which pt attributes to injury with rotatiller, some bilateral leg pain with ambulation, arthritis in bilateral knees, ankles and shoulders (limited ROM in shoulders d/t this). History of Any Multi-Drug Resistant Organisms: None Reported Past Surgical History: Back Surgery, Heart Catheterization, Orthopedic Surgery, Pacemaker Additional Past Surgical History / Comment(s): Laminectomy, anterior cervical discectomy/fusion C4-C6, R shoulder rotator cuff repair, dual chamber pacemaker. Laser vaporization of the prostate 04-07-17 Past Anesthesia/Blood Transfusion Reactions: Family Hisory of Malignant Hyperthermia Additional Past Anesthesia/Blood Transfusion Reaction / Comment(s): Daughter possibly has malignant hyperthermia. Type of Cardiac Device: Permanent Pacemaker Device Placement Date:: 01/16/17 Past Psychological History: No Psychological Hx Reported Smoking Status: Never smoker Past Alcohol Use History: None Reported Past Drug Use History: None Reported - Past Family History Daughter(s) Family Medical History: Rheumatoid Arthritis (RA) Additional Family Medical History / Comment(s): possuble malignant hyperthermia Father Family Medical History: No Reported History Additional Family Medical History / Comment(s): Father was healthy and lived until age 80yrs. Mother Family Medical History: No Reported History Additional Family Medical History / Comment(s): Mother was healthy and at the age of 77yrs. General Exam Limitations: no limitations General appearance: alert Respiratory exam: Present: normal lung sounds bilaterally. Absent: respiratory distress, wheezes, rales, rhonchi, stridor Cardiovascular Exam: Present: regular rate, normal rhythm, normal heart sounds. Absent: systolic murmur, diastolic murmur, rubs, gallop, clicks GI/Abdominal exam: Present: soft, normal bowel sounds. Absent: distended, tende rness, guarding, rebound, rigid Extremities exam: Present: other (4+ pedal edema from left knee to foot. no swelling to the femur. ecchymosis streaking to the posterior aspect of the medial and lateral distal thigh. additional ecchymosis over medial ankle. full rom at knee and ankle. No pain to palpation. 2+ DP, PT, popliteal and femoral pusles bilaterally. ) Course Vital Signs 04/16/20 04/16/20 16:12 18:33 Temperature 98.7 F 97.9 F Pulse Rate 65 65 Respiratory 16 18 Rate Blood Pressure 130/88 142/60 O2 Sat by Pulse 97 98 Oximetry Medical Decision Making - Medical Decision Making Upon arrival the patient is placed into room 26. A thorough history and physical exam was performed. Laboratory studies were conducted and a Doppler ultrasound was ordered. Laboratory studies demonstrate a hemoglobin 11.1. Creatinine 1.9. BNP 818. Coagulation studies are normal. Doppler ultrasound demonstrates no evidence of DVT. Complex mass in the popliteal fossa is consistent with complex popliteal cyst. Patient's symptoms are consistent with ruptured popliteal cyst. At this time the patient is instructed to rest, ice and elevate the extremity. We did place a compression wrap to the left lower extremity. He is to follow-up with orthopedics for further evaluation. Return to the emergency room for any new or worsening symptoms. Patient was discharged home in stable condition - Lab Data Result diagrams: 04/16/20 17:10 04/16/20 17:10 Lab Results 04/16/20 04/16/20 04/16/20 Range/Units 17:10 17:10 17:10 WBC 8.5 (3.8-10.6) k/uL RBC 3.71 L (4.30-5.90) m/uL Hgb 11.1 L (13.0-17.5) gm/dL Hct 34.4 L (39.0-53.0) % MCV 92.7 (80.0-100.0) fL MCH 30.0 (25.0-35.0) pg MCHC 32.4 (31.0-37.0) g/dL RDW 12.7 (11.5-15.5) % Plt Count 240 (150-450) k/uL Neutrophils % 68 % Lymphocytes % 16 % Monocytes % 10 % Eosinophils % 3 % Basophils % 1 % Neutrophils # 5.8 (1.3-7.7) k/uL Lymphocytes # 1.4 (1.0-4.8) k/uL Monocytes # 0.9 (0-1.0) k/uL Eosinophils # 0.2 (0-0.7) k/uL Basophils # 0.1 (0-0.2) k/uL PT 10.6 (9.0-12.0) sec INR 1.0 (<1.2) APTT 25.1 (22.0-30.0) sec Sodium 136 L (137-145) mmol/L Potassium 4.9 (3.5-5.1) mmol/L Chloride 101 (98-107) mmol/L Carbon Dioxide 28 (22-30) mmol/L Anion Gap 7 mmol/L BUN 41 H (9-20) mg/dL Creatinine 1.99 H (0.66-1.25) mg/dL Est GFR (CKD-EPI)AfAm 34 (>60 ml/min/1.73 sqM) Est GFR (CKD-EPI)NonAf 29 (>60 ml/min/1.73 sqM) Glucose 123 H (74-99) mg/dL Calcium 9.5 (8.4-10.2) mg/dL Total Bilirubin 0.7 (0.2-1.3) mg/dL AST 18 (17-59) U/L ALT 11 (4-49) U/L Alkaline Phosphatase 83 (38-126) U/L NT-Pro-B Natriuret Pep pg/mL Total Protein 7.1 (6.3-8.2) g/dL Albumin 4.0 (3.5-5.0) g/dL 04/16/20 Range/Units 17:10 WBC (3.8-10.6) k/uL RBC (4.30-5.90) m/uL Hgb (13.0-17.5) gm/dL Hct (39.0-53.0) % MCV (80.0-100.0) fL MCH (25.0-35.0) pg MCHC (31.0-37.0) g/dL RDW (11.5-15.5) % Plt Count (150-450) k/uL Neutrophils % % Lymphocytes % % Monocytes % % Eosinophils % % Basophils % % Neutrophils # (1.3-7.7) k/uL Lymphocytes # (1.0-4.8) k/uL Monocytes # (0-1.0) k/uL Eosinophils # (0-0.7) k/uL Basophils # (0-0.2) k/uL PT (9.0-12.0) sec INR (<1.2) APTT (22.0-30.0) sec Sodium (137-145) mmol/L Potassium (3.5-5.1) mmol/L Chloride (98-107) mmol/L Carbon Dioxide (22-30) mmol/L Anion Gap mmol/L BUN (9-20) mg/dL Creatinine (0.66-1.25) mg/dL Est GFR (CKD-EPI)AfAm (>60 ml/min/1.73 sqM) Est GFR (CKD-EPI)NonAf (>60 ml/min/1.73 sqM) Glucose (74-99) mg/dL Calcium (8.4-10.2) mg/dL Total Bilirubin (0.2-1.3) mg/dL AST (17-59) U/L ALT (4-49) U/L Alkaline Phosphatase (38-126) U/L NT-Pro-B Natriuret Pep 818 pg/mL Total Protein (6.3-8.2) g/dL Albumin (3.5-5.0) g/dL Disposition Clinical Impression: Leg swelling, Reyes's cyst, ruptured Disposition: HOME SELF-CARE Condition: Stable Instructions (If sedation given, give patient instructions): Bakers Cyst (ED) Additional Instructions: Rest, ice and elevate your leg. Wear the compression wrap. Take your Eliquis as directed. Follow up with orthopedic doctor. Return to the emergency room f or any new or worsening symptoms Is patient prescribed a controlled substance at d/c from ED?: No Referrals: Finn Alva MD [Primary Care Provider] - 1-2 days Sebas Medina MD [STAFF PHYSICIAN] - 1-2 days Time of Disposition: 18:13
[2020-04-16 18:35] VITALS: BP 142/60; RESP 18; TEMP 97.9
== END 2020-04-16 18:36 | disposition home or self-care (01) ==
LOC: EC 16:04
DX: M66.0 Rupture of popliteal cyst (principal); I48.91 Unspecified atrial fibrillation; E11.9 Type 2 diabetes mellitus without complications; I11.0 Hypertensive heart disease with heart failure; I50.32 Chronic diastolic (congestive) heart failure; N40.0 Benign prostatic hyperplasia without lower urinary tract symptoms; Z79.01 Long term (current) use of anticoagulants; Z79.84 Long term (current) use of oral hypoglycemic drugs; Z79.899 Other long term (current) drug therapy; Z95.1 Presence of aortocoronary bypass graft; Z95.5 Presence of coronary angioplasty implant and graft; Z86.718 Personal history of other venous thrombosis and embolism; Z98.1 Arthrodesis status
CPT/HCPCS: 36415; 80053; 83880; 85025; 85610; 85730; 99284